=== PATIENT | male | born 1960 | race African-American/Black ===

== ENCOUNTER 2021-02-05 13:11 | Inpatient (IN) | payer OTHER ==
[2021-02-05] MEDS ORDERED: ALBUTEROL SO4 HFA INHALER IH ONE ×2 (14:50→16:04)
[2021-02-05] MEDS ORDERED: SODIUM CHLORIDE 250 ML IV PRN (15:26)
[2021-02-05 16:20] LABS: BASO % 0.8 % (0-2.0); EOS % 8.4 % (0-4.5); HEMATOCRIT 19.6 % (35.4-49); LYMPH % 15.7 % (8-40); MCH 23.6 pg (25.7-33.7); MCHC 32.5 g/dl (32.0-35.9); MEAN CELL VOLUME 72.7 fl (80-96); MONO % 4.9 % (3.8-10.2); NEUT % 70.2 % (42.8-82.8); PLATELET COUNT 241 10^3/uL (134-434); RDW 18.2 % (11.9-15.9); WHITE BLOOD COUNT 5.8 K/mm3 (4.0-10.0)
[2021-02-05 16:25] LABS: HEMOGLOBIN 6.4 GM/dL (11.7-16.9)
[2021-02-05 16:42] LABS: CHLORIDE 100 mmol/L (98-107); SODIUM 133 mmol/L (136-145)
[2021-02-05 16:45] LABS: ALBUMIN 2.9 g/dl (3.4-5.0); BLOOD UREA NITROGEN 81.6 mg/dL (7-18); CO2 20 mmol/L (21-32); GLUCOSE,RANDOM 92 mg/dL (74-106); MAGNESIUM 2.3 mg/dL (1.8-2.4)
[2021-02-05 16:47] LABS: SGPT/ALT 15 U/L (13-61)
[2021-02-05 16:48] LABS: PHOSPHOROUS 5.1 mg/dL (2.5-4.9); SGOT/AST 12 U/L (15-37)
[2021-02-05 16:49] LABS: BILIRUBIN,TOTAL 0.5 mg/dL (0.2-1); TOT PROT 8.2 g/dl (6.4-8.2)
[2021-02-05 16:50] LABS: ALK PHOS 122 U/L (45-117)
[2021-02-05 16:54] LABS: ANION GAP 13 MMOL/L (8-16); CREATININE 18.4 mg/dL (0.55-1.3)
[2021-02-05] MEDS ORDERED: CALCIUM GLUCONATE 10% - 1,000 MG/10 ML VIAL IVPB ONE (16:59)
[2021-02-05] MEDS ORDERED: EPOETIN ALFA-EPBX 10,000 UNIT/ML VIAL IVPUSH ONE (19:30)
[2021-02-05] MEDS: HEPARIN NA (PORCINE) 5,000 UNITS/ML 1ML VIAL SQ SCH (22:45)
[2021-02-06 00:18] VITALS: BMI 29.5
[2021-02-06] MEDS: HEPARIN NA (PORCINE) 5,000 UNITS/ML 1ML VIAL SQ SCH ×2 (06:30→13:28)
[2021-02-06] MEDS: INSULIN SLIDING SCALE (NOVOLOG) 1 VIAL SQ SCH ×4 (06:32→22:33)
[2021-02-06 10:50] LABS: BASO % 0.9 % (0-2.0); EOS % 5.7 % (0-4.5); HEMATOCRIT 22.5 % (35.4-49); HEMOGLOBIN 7.5 GM/dL (11.7-16.9); LYMPH % 8.3 % (8-40); MCH 24.3 pg (25.7-33.7); MCHC 33.2 g/dl (32.0-35.9); MEAN CELL VOLUME 73.2 fl (80-96); MEAN PLT VOLUME 7.8 fl (7.5-11.1); MONO % 4.6 % (3.8-10.2); NEUT % 80.5 % (42.8-82.8); PLATELET COUNT 276 10^3/uL (134-434); RBC 3.07 M/mm3 (4.00-5.60); RDW 18.6 % (11.9-15.9); WHITE BLOOD COUNT 8.3 K/mm3 (4.0-10.0)
[2021-02-06] MEDS ORDERED: SODIUM CHLORIDE 250 ML IV PRN (11:03)
[2021-02-06 11:17] LABS: CHLORIDE 101 mmol/L (98-107); SODIUM 137 mmol/L (136-145)
[2021-02-06 11:21] LABS: ALBUMIN 2.8 g/dl (3.4-5.0); ANION GAP 11 MMOL/L (8-16); CO2 25 mmol/L (21-32); GLUCOSE,RANDOM 103 mg/dL (74-106)
[2021-02-06 11:22] LABS: MAGNESIUM 1.9 mg/dL (1.8-2.4)
[2021-02-06 11:24] LABS: PHOSPHOROUS 4.6 mg/dL (2.5-4.9); SGPT/ALT 12 U/L (13-61)
[2021-02-06] MEDS: CALCIUM ACETATE 667 MG CAPSULE (FP) PO SCH ×2 (11:24→17:49)
[2021-02-06 11:25] LABS: LDH 256 U/L (87-246); SGOT/AST 10 U/L (15-37)
[2021-02-06 11:26] LABS: TOT PROT 8.2 g/dl (6.4-8.2)
[2021-02-06 11:27] LABS: ALK PHOS 115 U/L (45-117)
[2021-02-06 11:36] LABS: BLOOD UREA NITROGEN 47.7 mg/dL (7-18); CALCIUM 6.3 mg/dL (8.5-10.1); CREATININE 12.9 mg/dL (0.55-1.3)
[2021-02-06] MEDS ORDERED: EPOETIN ALFA-EPBX 10,000 UNIT/ML VIAL IVPUSH ONE (12:15)
[2021-02-06] MEDS ORDERED: PARICALCITOL 5 MCG/ML VIAL IVPUSH ONE (12:34)
[2021-02-06] MEDS: CARVEDILOL 6.25 MG TABLET (FP) PO SCH ×2 (13:26→22:33)
[2021-02-06] MEDS: NIFEdipine E.R 60 MG TABLET PO SCH (13:26)
[2021-02-06] MEDS: CALCIUM 500MG/VIT-D 200 UNITS COMBO TABLET (FP) PO SCH (18:49)
[2021-02-06] MEDS: APIXABAN 2.5 MG TABLET PO SCH (22:33)
[2021-02-07 02:48] LABS: EPI CELLS 7 /uL (0-25.1); HYALINE CASTS 1 /uL (0-3.1); PH,URINE >= 9.0 (5.0-8.0); URINE APPEARANCE CLEAR; URINE BACTERIA 8 /uL (0-1359); URINE BILIRUBIN NEGATIVE (NEGATIVE); URINE COLOR YELLOW; URINE GLUCOSE (UA) NEGATIVE (NEGATIVE); URINE KETONE NEGATIVE (NEGATIVE); URINE LEUK ESTERASE NEGATIVE (NEGATIVE); URINE NITRITE NEGATIVE (NEGATIVE); URINE PROTEIN 4+ (NEGATIVE); URINE RBC 8 /uL (0-23.9); URINE WBC 30 /uL (0-25.8)
[2021-02-07] MEDS: INSULIN SLIDING SCALE (NOVOLOG) 1 VIAL SQ SCH ×4 (06:20→21:28)
[2021-02-07 08:15] LABS: BASO % 0.9 % (0-2.0); EOS % 5.4 % (0-4.5); HEMATOCRIT 21.3 % (35.4-49); HEMOGLOBIN 7.1 GM/dL (11.7-16.9); LYMPH % 13.1 % (8-40); MCH 24.6 pg (25.7-33.7); MCHC 33.3 g/dl (32.0-35.9); MEAN CELL VOLUME 73.8 fl (80-96); MEAN PLT VOLUME 7.7 fl (7.5-11.1); MONO % 4.7 % (3.8-10.2); NEUT % 75.9 % (42.8-82.8); PLATELET COUNT 285 10^3/uL (134-434); RBC 2.88 M/mm3 (4.00-5.60); RDW 18.8 % (11.9-15.9); WHITE BLOOD COUNT 6.7 K/mm3 (4.0-10.0)
[2021-02-07 09:15] LABS: ALBUMIN 2.5 g/dl (3.4-5.0); ALK PHOS 98 U/L (45-117); ANION GAP 8 MMOL/L (8-16); BILIRUBIN,TOTAL 0.7 mg/dL (0.2-1); BLOOD UREA NITROGEN 28.4 mg/dL (7-18); CALCIUM 6.4 mg/dL (8.5-10.1); CHLORIDE 99 mmol/L (98-107); CO2 26 mmol/L (21-32); CREATININE 8.6 mg/dL (0.55-1.3); GLUCOSE,RANDOM 95 mg/dL (74-106); IRON SERUM 14 ug/dL (50-175); MAGNESIUM 1.7 mg/dL (1.8-2.4); PHOSPHOROUS 2.7 mg/dL (2.5-4.9); SGOT/AST 10 U/L (15-37); SGPT/ALT 10 U/L (13-61); SODIUM 133 mmol/L (136-145); TOT PROT 7.6 g/dl (6.4-8.2); TOTAL IRON BINDING CAPACITY 255 ug/dL (250-450)
[2021-02-07] MEDS ORDERED: PT OWN MED DRAWER 7, Y5N ONE (09:39)
[2021-02-07] MEDS: CARVEDILOL 6.25 MG TABLET (FP) PO SCH ×2 (10:05→21:28)
[2021-02-07] MEDS: APIXABAN 2.5 MG TABLET PO SCH ×2 (10:05→21:28)
[2021-02-07] MEDS: CALCIUM 500MG/VIT-D 200 UNITS COMBO TABLET (FP) PO SCH (10:06)
[2021-02-07] MEDS: NIFEdipine E.R 60 MG TABLET PO SCH (10:06)
[2021-02-07] MEDS ORDERED: SODIUM CHLORIDE 250 ML IV PRN (12:56)
[2021-02-08 00:15] VITALS: TEMP 98.2
[2021-02-08] MEDS: INSULIN SLIDING SCALE (NOVOLOG) 1 VIAL SQ SCH ×2 (06:43→12:22)
[2021-02-08] MEDS ORDERED: NIFEdipine E.R. 30 MG TABLET PO SCH (10:00)
[2021-02-08] MEDS ORDERED: NIFEdipine E.R 60 MG TABLET PO SCH (10:00)
[2021-02-08] MEDS: CALCIUM 500MG/VIT-D 200 UNITS COMBO TABLET (FP) PO SCH (10:21)
[2021-02-08] MEDS: APIXABAN 2.5 MG TABLET PO SCH (10:22)
[2021-02-08] MEDS: CARVEDILOL 6.25 MG TABLET (FP) PO SCH (10:22)
[2021-02-08 10:28] VITALS: BP 138/76; PULSE 92
[2021-02-08] MEDS ORDERED: EPOETIN ALFA-EPBX 10,000 UNIT/ML VIAL SQ ONE (12:56)
== END 2021-02-08 13:59 | disposition home or self-care (01) | DRG 640 ==
LOC: JER 13:11 → JERBED 14:42 → J5S 21:33
PROVIDERS: ADMIT Internal Medicine; ATTEND Internal Medicine
PROC: 5A1D70Z Performance of Urinary Filtration, Intermittent, Less than 6 Hours Per Day (ICD-10-PCS; 2021-02-05)
PROC: 0HBRXZZ Excision of Toe Nail, External Approach (ICD-10-PCS; principal; 2021-02-06)
PROC: 0HBRXZZ Excision of Toe Nail, External Approach (ICD-10-PCS; 2021-02-06)
PROC: 0HBRXZZ Excision of Toe Nail, External Approach (ICD-10-PCS; 2021-02-06)
PROC: 0HBRXZZ Excision of Toe Nail, External Approach (ICD-10-PCS; 2021-02-06)
PROC: 0HBRXZZ Excision of Toe Nail, External Approach (ICD-10-PCS; 2021-02-06)
PROC: 0HBRXZZ Excision of Toe Nail, External Approach (ICD-10-PCS; 2021-02-06)
PROC: 0HBRXZZ Excision of Toe Nail, External Approach (ICD-10-PCS; 2021-02-06)
PROC: 0HBRXZZ Excision of Toe Nail, External Approach (ICD-10-PCS; 2021-02-06)
PROC: 0HBRXZZ Excision of Toe Nail, External Approach (ICD-10-PCS; 2021-02-06)
PROC: 0HBRXZZ Excision of Toe Nail, External Approach (ICD-10-PCS; 2021-02-06)
PROC: 5A1D70Z Performance of Urinary Filtration, Intermittent, Less than 6 Hours Per Day (ICD-10-PCS; 2021-02-06)
DX: E87.70 Fluid overload, unspecified (principal); N18.6 End stage renal disease; I12.0 Hypertensive chronic kidney disease with stage 5 chronic kidney disease or end stage renal disease; L97.528 Non-pressure chronic ulcer of other part of left foot with other specified severity; E11.22 Type 2 diabetes mellitus with diabetic chronic kidney disease; J45.909 Unspecified asthma, uncomplicated; D64.9 Anemia, unspecified; E87.5 Hyperkalemia; E11.40 Type 2 diabetes mellitus with diabetic neuropathy, unspecified; E83.51 Hypocalcemia; Z86.73 Personal history of transient ischemic attack (TIA), and cerebral infarction without residual deficits; B35.1 Tinea unguium; B35.3 Tinea pedis; Z99.2 Dependence on renal dialysis
CPT/HCPCS: 36415; 36430; 71045-TC-FY; 80053; 81003; 82550; 82553; 82728; 82962; 83540; 83550; 83615; 83735; 84100; 84132; 84484; 85025; 85045; 86803; 86850; 86900; 86901; 86922; 87040; 87340; 87804; 93005; 93010; 97116-GP; 97162-GP; 99285-25; C9803; J1644; P9058; Q5106; U0003; U0005

== ENCOUNTER 2021-02-28 17:56 | Inpatient (IN) | payer OTHER ==
[2021-02-28 21:42] LABS: BASO % 2.2 % (0-2.0); EOS % 6.9 % (0-4.5); HEMATOCRIT 15.4 % (35.4-49); LYMPH % 18.5 % (8-40); MCH 25.3 pg (25.7-33.7); MCHC 32.5 g/dl (32.0-35.9); MEAN CELL VOLUME 77.9 fl (80-96); MONO % 7.8 % (3.8-10.2); NEUT % 64.6 % (42.8-82.8); PLATELET COUNT 319 10^3/uL (134-434); RBC 1.97 M/mm3 (4.00-5.60); RDW 21.7 % (11.9-15.9); WHITE BLOOD COUNT 6.5 K/mm3 (4.0-10.0)
[2021-02-28 22:01] LABS: CHLORIDE 102 mmol/L (98-107); SODIUM 134 mmol/L (136-145)
[2021-02-28 22:03] LABS: ALBUMIN 2.8 g/dl (3.4-5.0); BLOOD UREA NITROGEN 98.1 mg/dL (7-18); CO2 16 mmol/L (21-32); GLUCOSE,RANDOM 66 mg/dL (74-106); MAGNESIUM 2.1 mg/dL (1.8-2.4)
[2021-02-28 22:06] LABS: SGOT/AST 317 U/L (15-37); SGPT/ALT 192 U/L (13-61)
[2021-02-28 22:07] LABS: PHOSPHOROUS 7.5 mg/dL (2.5-4.9)
[2021-02-28 22:08] LABS: BILIRUBIN,TOTAL 0.5 mg/dL (0.2-1); TOT PROT 8.4 g/dl (6.4-8.2)
[2021-02-28 22:09] LABS: ALK PHOS 115 U/L (45-117)
[2021-02-28 22:27] LABS: ANION GAP 16 MMOL/L (8-16); CALCIUM 5.9 mg/dL (8.5-10.1)
[2021-02-28] MEDS ORDERED: DEXTROSE 50%-WATER - 25 GM/50 ML VIAL IVPUSH ONE ×3 (22:41→23:15)
[2021-02-28] MEDS ORDERED: INSULIN REGULAR HUMAN 100 UNITS/ML *VIAL IVPUSH ONE (22:42)
[2021-02-28] MEDS ORDERED: SODIUM BICARBONATE 8.4% 50 MEQ/50 ML DISP.SYRIN IVPUSH ONE (22:43)
[2021-02-28 22:44] LABS: ANISOCYTOSIS 2+; MACROCYTOSIS 2+; PLATELET ESTIMATE NORMAL; TARGET CELLS 1+
[2021-02-28] MEDS ORDERED: CALCIUM GLUC IN NACL, ISO-OSM 1 GM/50 ML BAG IVPB ONE (22:44)
[2021-02-28] MEDS ORDERED: DEXTROSE 50%-WATER 25 GM/50 ML DISP.SYRIN ONE (23:02)
[2021-02-28] MEDS ORDERED: CALCIUM GLUCONATE 10% - 1,000 MG/10 ML VIAL ONE (23:02)
[2021-02-28] MEDS ORDERED: SODIUM BICARBONATE 8.4% - 50 ML ONE (23:02)
[2021-02-28] MEDS ORDERED: SODIUM CHLORIDE 250 ML IV PRN (23:12)
[2021-02-28] MEDS ORDERED: FUROSEMIDE 40 MG TABLET (FP) PO ONE (23:42)
[2021-02-28] MEDS ORDERED: ALBUTEROL SO4 0.083% IH SOL 2.5 MG/3 ML VIAL.NEB. NEB ONE (23:43)
[2021-03-01] MEDS ORDERED: ALBUTEROL SO4 0.083% IH SOL 2.5 MG/3 ML VIAL.NEB. NEB ONE (00:12)
[2021-03-01] MEDS ORDERED: FUROSEMIDE 40 MG TABLET (FP) ONE (00:12)
[2021-03-01] MEDS ORDERED: ALBUTEROL SO4 HFA INHALER IH PRN ×2 (02:02→03:59)
[2021-03-01] MEDS: ALBUTEROL SO4 0.083% IH SOL 2.5 MG/3 ML VIAL.NEB. NEB SCH ×5 (04:13→20:15)
[2021-03-01 04:14] LABS: CHLORIDE 103 mmol/L (98-107); SODIUM 135 mmol/L (136-145)
[2021-03-01 04:16] LABS: BLOOD UREA NITROGEN 98.9 mg/dL (7-18); CO2 17 mmol/L (21-32); GLUCOSE,RANDOM 69 mg/dL (74-106)
[2021-03-01 04:31] LABS: ANION GAP 15 MMOL/L (8-16); CREATININE 20.9 mg/dL (0.55-1.3)
[2021-03-01] MEDS ORDERED: DEXTROSE 50%-WATER - 25 GM/50 ML VIAL IVPUSH ONE (04:33)
[2021-03-01] MEDS ORDERED: INSULIN REGULAR HUMAN 100 UNITS/ML *VIAL IVPUSH ONE (04:33)
[2021-03-01] MEDS ORDERED: CALCIUM GLUCONATE 10% - 1,000 MG/10 ML VIAL IVPUSH ONE (04:34)
[2021-03-01] MEDS ORDERED: DEXTROSE 50%-WATER 25 GM/50 ML DISP.SYRIN ONE (05:42)
[2021-03-01] MEDS: SEVELAMER CARBONATE 800 MG TAB (FP) PO SCH ×3 (06:05→21:38)
[2021-03-01] MEDS: ALBUTEROL SO4 HFA INHALER IH SCH ×4 (06:05→17:44)
[2021-03-01] MEDS ORDERED: SODIUM ZIRCONIUM CYCLOSILICATE (LOKELMA) 10 GM PACKET PO ONE (06:15)
[2021-03-01] MEDS: INSULIN SLIDING SCALE (NOVOLOG) 1 VIAL SQ SCH ×4 (06:50→21:38)
[2021-03-01 07:52] LABS: CHLORIDE 102 mmol/L (98-107); SODIUM 133 mmol/L (136-145)
[2021-03-01 07:56] LABS: ALBUMIN 2.7 g/dl (3.4-5.0); BLOOD UREA NITROGEN 96.1 mg/dL (7-18); CO2 18 mmol/L (21-32); GLUCOSE,RANDOM 67 mg/dL (74-106)
[2021-03-01 07:57] LABS: MAGNESIUM 2.1 mg/dL (1.8-2.4)
[2021-03-01 07:59] LABS: IRON SERUM 55 ug/dL (50-175); PHOSPHOROUS 7.4 mg/dL (2.5-4.9); SGOT/AST 371 U/L (15-37); SGPT/ALT 219 U/L (13-61); TOTAL IRON BINDING CAPACITY 253 ug/dL (250-450)
[2021-03-01 08:00] LABS: BILIRUBIN,TOTAL 0.6 mg/dL (0.2-1); TOT PROT 8.1 g/dl (6.4-8.2)
[2021-03-01 08:01] LABS: ALK PHOS 113 U/L (45-117)
[2021-03-01 08:22] LABS: ANION GAP 13 MMOL/L (8-16); CALCIUM 6.1 mg/dL (8.5-10.1); CREATININE 20.9 mg/dL (0.55-1.3)
[2021-03-01] MEDS ORDERED: EPOETIN ALFA-EPBX 10,000 UNIT/ML VIAL SQ ONE (08:30)
[2021-03-01 08:42] LABS: BASO % 2.4 % (0-2.0); EOS % 7.1 % (0-4.5); LYMPH % 15.7 % (8-40); MCHC 33.4 g/dl (32.0-35.9); MEAN CELL VOLUME 77.9 fl (80-96); MONO % 7.3 % (3.8-10.2); NEUT % 67.5 % (42.8-82.8); PLATELET COUNT 242 10^3/uL (134-434); RBC 2.56 M/mm3 (4.00-5.60); RDW 21.5 % (11.9-15.9); WHITE BLOOD COUNT 5.4 K/mm3 (4.0-10.0)
[2021-03-01 08:48] LABS: HEMOGLOBIN 6.7 GM/dL (11.7-16.9)
[2021-03-01 09:01] LABS: MAGNESIUM 2.5 mg/dL (1.8-2.4)
[2021-03-01 09:04] LABS: PHOSPHOROUS 6.5 mg/dL (2.5-4.9)
[2021-03-01] MEDS ORDERED: SODIUM ZIRCONIUM CYCLOSILICATE (LOKELMA) 5 GM PACKET PO SCH (10:00)
[2021-03-01 11:33] LABS: CHLORIDE 103 mmol/L (98-107); SODIUM 136 mmol/L (136-145)
[2021-03-01 11:39] LABS: GLUCOSE,RANDOM 80 mg/dL (74-106)
[2021-03-01 11:40] LABS: ANION GAP 16 MMOL/L (8-16); BLOOD UREA NITROGEN 100.4 mg/dL (7-18); CO2 17 mmol/L (21-32)
[2021-03-01 11:55] LABS: CALCIUM 6.1 mg/dL (8.5-10.1); CREATININE 20.6 mg/dL (0.55-1.3)
[2021-03-01] MEDS ORDERED: AMMONIUM LACTATE 12% LOTION 225 GM BOTTLE TP PRN ×2 (12:04→12:06)
[2021-03-01] MEDS: NIFEdipine E.R. 30 MG TABLET PO SCH (12:15)
[2021-03-01] MEDS: CARVEDILOL 6.25 MG TABLET (FP) PO SCH ×2 (12:15→21:38)
[2021-03-01 15:32] LABS: CHLORIDE 101 mmol/L (98-107); SODIUM 137 mmol/L (136-145)
[2021-03-01 15:41] LABS: ALBUMIN 2.7 g/dl (3.4-5.0); ANION GAP 11 MMOL/L (8-16); CO2 25 mmol/L (21-32); GLUCOSE,RANDOM 94 mg/dL (74-106)
[2021-03-01 15:44] LABS: SGOT/AST 317 U/L (15-37); SGPT/ALT 212 U/L (13-61)
[2021-03-01 15:45] LABS: BILIRUBIN,TOTAL 1.3 mg/dL (0.2-1)
[2021-03-01 15:46] LABS: TOT PROT 7.7 g/dl (6.4-8.2)
[2021-03-01 15:47] LABS: ALK PHOS 107 U/L (45-117)
[2021-03-01 15:48] LABS: BLOOD UREA NITROGEN 38.8 mg/dL (7-18); CALCIUM 7.2 mg/dL (8.5-10.1); CREATININE 8.8 mg/dL (0.55-1.3)
[2021-03-01] MEDS: MUPIROCIN 2% TOPICAL OINTMENT FOR DECOLONIZATION NS SCH ×2 (17:15→21:37)
[2021-03-01 17:18] LABS: EOS % 5.1 % (0-4.5); HEMATOCRIT 25.8 % (35.4-49); HEMOGLOBIN 8.6 GM/dL (11.7-16.9); LYMPH % 6.8 % (8-40); MCH 26.6 pg (25.7-33.7); MCHC 33.4 g/dl (32.0-35.9); MEAN CELL VOLUME 79.7 fl (80-96); MONO % 8.6 % (3.8-10.2); NEUT % 78.5 % (42.8-82.8); PLATELET COUNT 250 10^3/uL (134-434); RBC 3.24 M/mm3 (4.00-5.60); RDW 20.4 % (11.9-15.9); WHITE BLOOD COUNT 7.8 K/mm3 (4.0-10.0)
[2021-03-01] MEDS ORDERED: CHLORHEXIDINE GLUCONATE 4% CLEANSER FOR DECOLONIZATION TP SCH (22:00)
[2021-03-02] MEDS: ALBUTEROL SO4 0.083% IH SOL 2.5 MG/3 ML VIAL.NEB. NEB SCH ×6 (00:18→20:22)
[2021-03-02 01:52] LABS: ANION GAP 8 MMOL/L (8-16); BLOOD UREA NITROGEN 48.8 mg/dL (7-18); CALCIUM 5.9 mg/dL (8.5-10.1); CHLORIDE 102 mmol/L (98-107); CO2 27 mmol/L (21-32); CREATININE 12.9 mg/dL (0.55-1.3); GLUCOSE,RANDOM 108 mg/dL (74-106); SODIUM 137 mmol/L (136-145)
[2021-03-02] MEDS: INSULIN SLIDING SCALE (NOVOLOG) 1 VIAL SQ SCH ×4 (06:28→21:14)
[2021-03-02] MEDS: SEVELAMER CARBONATE 800 MG TAB (FP) PO SCH ×2 (06:33→14:27)
[2021-03-02] MEDS ORDERED: SODIUM CHLORIDE 250 ML IV PRN (07:00)
[2021-03-02] MEDS ORDERED: EPOETIN ALFA-EPBX 20,000 UNIT/ML VIAL SQ ONE (08:00)
[2021-03-02 08:26] LABS: HEMATOCRIT 23.4 % (35.4-49); HEMOGLOBIN 7.9 GM/dL (11.7-16.9); MCH 26.8 pg (25.7-33.7); MEAN CELL VOLUME 78.9 fl (80-96); MEAN PLT VOLUME 7.6 fl (7.5-11.1); PLATELET COUNT 236 10^3/uL (134-434); RBC 2.96 M/mm3 (4.00-5.60); RDW 20.9 % (11.9-15.9); WHITE BLOOD COUNT 6.5 K/mm3 (4.0-10.0)
[2021-03-02] MEDS: ALBUTEROL SO4 HFA INHALER IH SCH ×7 (08:45→21:13)
[2021-03-02 08:49] LABS: CHLORIDE 103 mmol/L (98-107); SODIUM 137 mmol/L (136-145)
[2021-03-02 08:52] LABS: ALBUMIN 2.2 g/dl (3.4-5.0); ANION GAP 9 MMOL/L (8-16); BLOOD UREA NITROGEN 50.2 mg/dL (7-18); CO2 26 mmol/L (21-32); GLUCOSE,RANDOM 107 mg/dL (74-106)
[2021-03-02 08:55] LABS: SGOT/AST 97 U/L (15-37); SGPT/ALT 130 U/L (13-61)
[2021-03-02 08:56] LABS: BILIRUBIN,TOTAL 0.8 mg/dL (0.2-1); TOT PROT 6.8 g/dl (6.4-8.2)
[2021-03-02 08:58] LABS: ALK PHOS 102 U/L (45-117); CALCIUM 5.8 mg/dL (8.5-10.1); CREATININE 12.9 mg/dL (0.55-1.3)
[2021-03-02] MEDS: NIFEdipine E.R. 30 MG TABLET PO SCH (10:25)
[2021-03-02] MEDS: CARVEDILOL 6.25 MG TABLET (FP) PO SCH ×2 (10:25→21:13)
[2021-03-02] MEDS: MUPIROCIN 2% TOPICAL OINTMENT FOR DECOLONIZATION NS SCH (10:55)
[2021-03-02] MEDS ORDERED: guaiFENesin/CODEINE 10 ML UNIT-DOSE CUPS PO STA (14:41)
[2021-03-02] MEDS ORDERED: ALBUTEROL SO4 0.083% IH SOL 2.5 MG/3 ML VIAL.NEB. NEB STA (14:44)
[2021-03-02] MEDS ORDERED: AMMONIUM LACTATE 12% LOTION 225 GM BOTTLE TP PRN (19:05)
[2021-03-02] MEDS ORDERED: CHLORHEXIDINE GLUCONATE 4% CLEANSER FOR DECOLONIZATION TP SCH (22:00)
[2021-03-02] MEDS ORDERED: MUPIROCIN 2% TOPICAL OINTMENT FOR DECOLONIZATION NS SCH (22:00)
[2021-03-03] MEDS: ALBUTEROL SO4 0.083% IH SOL 2.5 MG/3 ML VIAL.NEB. NEB SCH ×4 (00:07→12:46)
[2021-03-03] MEDS: ALBUTEROL SO4 HFA INHALER IH SCH ×4 (01:32→12:37)
[2021-03-03] MEDS: INSULIN SLIDING SCALE (NOVOLOG) 1 VIAL SQ SCH ×4 (06:37→21:01)
[2021-03-03 08:57] LABS: EOS % 7.9 % (0-4.5); HEMATOCRIT 26.1 % (35.4-49); HEMOGLOBIN 8.8 GM/dL (11.7-16.9); LYMPH % 13.7 % (8-40); MCHC 33.7 g/dl (32.0-35.9); MEAN CELL VOLUME 80.1 fl (80-96); MEAN PLT VOLUME 7.6 fl (7.5-11.1); MONO % 12.5 % (3.8-10.2); NEUT % 64.9 % (42.8-82.8); PLATELET COUNT 296 10^3/uL (134-434); RBC 3.26 M/mm3 (4.00-5.60); RDW 20.6 % (11.9-15.9); WHITE BLOOD COUNT 8.2 K/mm3 (4.0-10.0)
[2021-03-03] MEDS: SEVELAMER CARBONATE 800 MG TAB (FP) PO SCH ×3 (09:19→17:13)
[2021-03-03] MEDS: CARVEDILOL 6.25 MG TABLET (FP) PO SCH ×2 (09:20→21:01)
[2021-03-03] MEDS: NIFEdipine E.R. 30 MG TABLET PO SCH (09:20)
[2021-03-03 09:22] LABS: ALBUMIN 2.5 g/dl (3.4-5.0); CO2 25 mmol/L (21-32); GLUCOSE,RANDOM 89 mg/dL (74-106); MAGNESIUM 1.1 mg/dL (1.8-2.4)
[2021-03-03 09:25] LABS: PHOSPHOROUS 3.2 mg/dL (2.5-4.9); SGOT/AST 53 U/L (15-37); SGPT/ALT 98 U/L (13-61)
[2021-03-03 09:26] LABS: BILIRUBIN,TOTAL 0.6 mg/dL (0.2-1)
[2021-03-03 09:27] LABS: TOT PROT 7.5 g/dl (6.4-8.2)
[2021-03-03 09:28] LABS: ALK PHOS 98 U/L (45-117)
[2021-03-03 09:37] LABS: ANION GAP 10 MMOL/L (8-16); BLOOD UREA NITROGEN 28.1 mg/dL (7-18); CALCIUM 6.2 mg/dL (8.5-10.1); CHLORIDE 99 mmol/L (98-107); CREATININE 8.6 mg/dL (0.55-1.3); SODIUM 134 mmol/L (136-145)
[2021-03-03] MEDS ORDERED: ALBUTEROL SO4 HFA INHALER IH PRN (15:50)
[2021-03-04] MEDS: INSULIN SLIDING SCALE (NOVOLOG) 1 VIAL SQ SCH ×4 (07:02→21:09)
[2021-03-04] MEDS: SEVELAMER CARBONATE 800 MG TAB (FP) PO SCH ×3 (07:03→16:57)
[2021-03-04 08:18] LABS: BASO % 1.1 % (0-2.0); EOS % 9.9 % (0-4.5); LYMPH % 13.9 % (8-40); MCH 26.7 pg (25.7-33.7); MCHC 33.5 g/dl (32.0-35.9); MEAN CELL VOLUME 79.7 fl (80-96); MEAN PLT VOLUME 7.2 fl (7.5-11.1); MONO % 13.8 % (3.8-10.2); NEUT % 61.3 % (42.8-82.8); PLATELET COUNT 277 10^3/uL (134-434); WHITE BLOOD COUNT 6.7 K/mm3 (4.0-10.0)
[2021-03-04 08:43] LABS: CHLORIDE 97 mmol/L (98-107); SODIUM 131 mmol/L (136-145)
[2021-03-04 08:53] LABS: ALBUMIN 2.4 g/dl (3.4-5.0); ANION GAP 9 MMOL/L (8-16); CO2 26 mmol/L (21-32); GLUCOSE,RANDOM 81 mg/dL (74-106); MAGNESIUM 1.5 mg/dL (1.8-2.4)
[2021-03-04 08:55] LABS: BILIRUBIN,TOTAL 0.4 mg/dL (0.2-1); TOT PROT 7.1 g/dl (6.4-8.2)
[2021-03-04 08:56] LABS: SGOT/AST 38 U/L (15-37); SGPT/ALT 75 U/L (13-61)
[2021-03-04 08:57] LABS: ALK PHOS 96 U/L (45-117)
[2021-03-04 08:59] LABS: CALCIUM 6.2 mg/dL (8.5-10.1); CREATININE 9.6 mg/dL (0.55-1.3)
[2021-03-04] MEDS: NIFEdipine E.R. 30 MG TABLET PO SCH (09:02)
[2021-03-04] MEDS: CARVEDILOL 6.25 MG TABLET (FP) PO SCH ×2 (09:02→21:07)
[2021-03-04] MEDS: VITAMIN B COMP W-C 1 EA TABLET (NEPHRO-VITE) PO SCH (09:02)
[2021-03-04 11:11] LABS: INR 1.26 (0.83-1.09); PROTHROMBIN TIME (PATIENT) 14.2 SEC (9.7-13.0)
[2021-03-04] MEDS ORDERED: MAGNESIUM OXIDE 400 MG TABLET (FP) PO ONE (13:30)
[2021-03-04] MEDS: PANTOPRAZOLE 20 MG TABLET PO SCH (14:01)
[2021-03-04] MEDS ORDERED: BISACODYL 5 MG TABLET.DR (FP) PO ONE (16:00)
[2021-03-04] MEDS ORDERED: PEG 3350/NA SULF BICARB CL/KCL 4000 ML SOLN.RECON PO ONE (17:00)
[2021-03-05] MEDS: INSULIN SLIDING SCALE (NOVOLOG) 1 VIAL SQ SCH ×4 (07:03→21:30)
[2021-03-05 08:23] LABS: BASO % 0.9 % (0-2.0); EOS % 9.8 % (0-4.5); HEMATOCRIT 24.5 % (35.4-49); HEMOGLOBIN 8.1 GM/dL (11.7-16.9); LYMPH % 13.1 % (8-40); MCH 26.6 pg (25.7-33.7); MCHC 33.3 g/dl (32.0-35.9); MEAN PLT VOLUME 7.8 fl (7.5-11.1); NEUT % 64.2 % (42.8-82.8); PLATELET COUNT 274 10^3/uL (134-434); RBC 3.06 M/mm3 (4.00-5.60); RDW 21.2 % (11.9-15.9); WHITE BLOOD COUNT 5.8 K/mm3 (4.0-10.0)
[2021-03-05 08:35] LABS: CHLORIDE 94 mmol/L (98-107); SODIUM 130 mmol/L (136-145)
[2021-03-05 08:38] LABS: BLOOD UREA NITROGEN 41.8 mg/dL (7-18)
[2021-03-05 08:39] LABS: ALBUMIN 2.8 g/dl (3.4-5.0); ANION GAP 8 MMOL/L (8-16); CO2 28 mmol/L (21-32); GLUCOSE,RANDOM 84 mg/dL (74-106); MAGNESIUM 1.9 mg/dL (1.8-2.4)
[2021-03-05 08:42] LABS: SGOT/AST 29 U/L (15-37); SGPT/ALT 65 U/L (13-61)
[2021-03-05 08:44] LABS: BILIRUBIN,TOTAL 0.5 mg/dL (0.2-1); TOT PROT 7.8 g/dl (6.4-8.2)
[2021-03-05 08:45] LABS: ALK PHOS 95 U/L (45-117)
[2021-03-05 08:49] LABS: CALCIUM 6.4 mg/dL (8.5-10.1); CREATININE 10.5 mg/dL (0.55-1.3)
[2021-03-05] MEDS: SEVELAMER CARBONATE 800 MG TAB (FP) PO SCH ×3 (09:20→17:45)
[2021-03-05] MEDS: NIFEdipine E.R. 30 MG TABLET PO SCH (09:20)
[2021-03-05] MEDS: PANTOPRAZOLE 20 MG TABLET PO SCH (09:20)
[2021-03-05] MEDS: CARVEDILOL 6.25 MG TABLET (FP) PO SCH ×2 (09:20→21:27)
[2021-03-05] MEDS: VITAMIN B COMP W-C 1 EA TABLET (NEPHRO-VITE) PO SCH (09:20)
[2021-03-05] MEDS ORDERED: PEG 3350/NA SULF BICARB CL/KCL 4000 ML SOLN.RECON PO ONE (10:00)
[2021-03-05] MEDS ORDERED: EPOETIN ALFA-EPBX 20,000 UNIT/ML VIAL SQ ONE (10:15)
[2021-03-05] MEDS ORDERED: SODIUM CHLORIDE 250 ML IV PRN (10:20)
[2021-03-05] MEDS ORDERED: IRON SUCROSE INJECTION 200 MG in SODIUM CHLORIDE 90 ML IVPB ONE (11:00)
[2021-03-05] MEDS: MINERAL OIL/PET HY-PHL TOPICAL OINTMENT 454 GM JAR TP SCH (14:31)
[2021-03-05] MEDS ORDERED: BISACODYL 5 MG TABLET.DR (FP) PO ONE (20:00)
[2021-03-06] MEDS: INSULIN SLIDING SCALE (NOVOLOG) 1 VIAL SQ SCH ×4 (06:30→22:49)
[2021-03-06] MEDS: SEVELAMER CARBONATE 800 MG TAB (FP) PO SCH ×3 (08:43→16:55)
[2021-03-06 09:07] LABS: EOS % 5.6 % (0-4.5); HEMATOCRIT 24.8 % (35.4-49); HEMOGLOBIN 8.3 GM/dL (11.7-16.9); LYMPH % 13.1 % (8-40); MCH 27.1 pg (25.7-33.7); MCHC 33.6 g/dl (32.0-35.9); MEAN CELL VOLUME 80.8 fl (80-96); MEAN PLT VOLUME 7.6 fl (7.5-11.1); MONO % 14.9 % (3.8-10.2); NEUT % 65.4 % (42.8-82.8); PLATELET COUNT 224 10^3/uL (134-434); RBC 3.07 M/mm3 (4.00-5.60); RDW 21.3 % (11.9-15.9); RETICULOCYTES 3.44 % (0.5-1.5); WHITE BLOOD COUNT 5.7 K/mm3 (4.0-10.0)
[2021-03-06 09:28] LABS: ALBUMIN 2.6 g/dl (3.4-5.0); BLOOD UREA NITROGEN 24.1 mg/dL (7-18); CALCIUM 7.1 mg/dL (8.5-10.1); MAGNESIUM 1.9 mg/dL (1.8-2.4)
[2021-03-06 09:31] LABS: CREATININE 7.2 mg/dL (0.55-1.3)
[2021-03-06 09:33] LABS: BILIRUBIN,TOTAL 0.6 mg/dL (0.2-1); TOT PROT 7.6 g/dl (6.4-8.2)
[2021-03-06] MEDS: VITAMIN B COMP W-C 1 EA TABLET (NEPHRO-VITE) PO SCH (10:23)
[2021-03-06] MEDS: CARVEDILOL 6.25 MG TABLET (FP) PO SCH ×2 (10:23→21:53)
[2021-03-06] MEDS: NIFEdipine E.R. 30 MG TABLET PO SCH (10:23)
[2021-03-06] MEDS: PANTOPRAZOLE 20 MG TABLET PO SCH (10:23)
[2021-03-06] MEDS: MINERAL OIL/PET HY-PHL TOPICAL OINTMENT 454 GM JAR TP SCH (10:24)
[2021-03-06] MEDS: BUDESONIDE/FORMETEROL FUMARATE 80/4.5 mcg INHALER IH SCH ×2 (10:25→21:52)
[2021-03-06] MEDS ORDERED: PT OWN MED DRAWER 7, Y5N ONE (10:25)
[2021-03-07] MEDS ORDERED: ALBUTEROL SO4 2.5/IPRATROPIUM 0.5 INH SOL 3 ML VIAL.NEB. NEB ONE (01:03)
[2021-03-07] MEDS ORDERED: MAGNESIUM SULF 50% (8.12 MEQ/2 ML-1 GM VIAL) IVPB ONE (01:09)
[2021-03-07] MEDS ORDERED: methylPREDNISolone NA SUCC 125 MG/2 ML VIAL IVPUSH ONE (01:09)
[2021-03-07 01:46] LABS: ARTERIAL BLD GAS O2 SATURATION 93.1 % (95-98); ARTERIAL BLOOD GAS BASE EXCESS -0.7 mmol/L (-2-2); ARTERIAL BLOOD GAS PO2 72.6 mmHg (80-100); ARTERIAL BLOOD GAS pH 7.313 (7.350-7.450)
[2021-03-07 01:49] LABS: ALLENS TEST POSITIVE; VENT RATE 18
[2021-03-07] MEDS ORDERED: guaiFENesin/D-M SUGAR-FREE/ACLHOL-FREE 118 ML BOTTLE PO ONE (01:57)
[2021-03-07] MEDS: ALBUTEROL SO4 2.5/IPRATROPIUM 0.5 INH SOL 3 ML VIAL.NEB. NEB SCH ×5 (04:12→20:55)
[2021-03-07] MEDS ORDERED: ALBUTEROL SO4 2.5/IPRATROPIUM 0.5 INH SOL 3 ML VIAL.NEB. NEB SCH (06:00)
[2021-03-07] MEDS: INSULIN SLIDING SCALE (NOVOLOG) 1 VIAL SQ SCH ×4 (06:45→22:56)
[2021-03-07] MEDS: SEVELAMER CARBONATE 800 MG TAB (FP) PO SCH ×3 (08:29→17:31)
[2021-03-07] MEDS ORDERED: PT OWN MED DRAWER 7, Y5N ONE (09:41)
[2021-03-07] MEDS: NIFEdipine E.R. 30 MG TABLET PO SCH (09:48)
[2021-03-07] MEDS: BUDESONIDE/FORMETEROL FUMARATE 80/4.5 mcg INHALER IH SCH ×2 (09:48→22:58)
[2021-03-07] MEDS: CARVEDILOL 6.25 MG TABLET (FP) PO SCH ×2 (09:48→22:52)
[2021-03-07] MEDS: MINERAL OIL/PET HY-PHL TOPICAL OINTMENT 454 GM JAR TP SCH (09:49)
[2021-03-07] MEDS ORDERED: methylPREDNISolone NA SUCC 40 MG/1 ML VIAL IVPUSH SCH (10:00)
[2021-03-07] MEDS ORDERED: INSULIN (NOVOLOG) ASPART 100 UNITS/ML 10ML VIAL ONE (11:46)
[2021-03-07] MEDS ORDERED: SODIUM CHLORIDE 250 ML IV PRN (14:10)
[2021-03-07] MEDS ORDERED: EPOETIN ALFA-EPBX 20,000 UNIT/ML VIAL SQ ONE (14:15)
[2021-03-07 15:29] LABS: HEMATOCRIT 22.7 % (35.4-49); HEMOGLOBIN 7.5 GM/dL (11.7-16.9); MCH 26.9 pg (25.7-33.7); MCHC 33.1 g/dl (32.0-35.9); MEAN CELL VOLUME 81.2 fl (80-96); MEAN PLT VOLUME 7.9 fl (7.5-11.1); PLATELET COUNT 144 10^3/uL (134-434); RBC 2.79 M/mm3 (4.00-5.60); WHITE BLOOD COUNT 4.6 K/mm3 (4.0-10.0)
[2021-03-07 15:57] LABS: CHLORIDE 95 mmol/L (98-107); SODIUM 133 mmol/L (136-145)
[2021-03-07 15:59] LABS: ALBUMIN 2.7 g/dl (3.4-5.0); ANION GAP 9 MMOL/L (8-16); CO2 29 mmol/L (21-32)
[2021-03-07 16:00] LABS: BLOOD UREA NITROGEN 38.3 mg/dL (7-18); GLUCOSE,RANDOM 153 mg/dL (74-106); MAGNESIUM 2.2 mg/dL (1.8-2.4)
[2021-03-07 16:02] LABS: SGPT/ALT 41 U/L (13-61)
[2021-03-07 16:03] LABS: CALCIUM 6.7 mg/dL (8.5-10.1); CREATININE 8.2 mg/dL (0.55-1.3); SGOT/AST 24 U/L (15-37)
[2021-03-07 16:04] LABS: BILIRUBIN,TOTAL 0.6 mg/dL (0.2-1); TOT PROT 7.9 g/dl (6.4-8.2)
[2021-03-07 16:05] LABS: ALK PHOS 96 U/L (45-117)
[2021-03-07] MEDS: HEPARIN NA (PORCINE) 5,000 UNITS/ML 1ML VIAL SQ SCH ×2 (17:09→22:52)
[2021-03-07] MEDS: VITAMIN B COMP W-C 1 EA TABLET (NEPHRO-VITE) PO SCH (17:09)
[2021-03-07] MEDS: PANTOPRAZOLE 20 MG TABLET PO SCH (17:09)
[2021-03-08] MEDS: guaiFENesin/D-M SUGAR-FREE/ACLHOL-FREE 118 ML BOTTLE PO PRN ×2 (05:38→16:29)
[2021-03-08] MEDS: INSULIN SLIDING SCALE (NOVOLOG) 1 VIAL SQ SCH ×4 (06:03→21:23)
[2021-03-08] MEDS: ALBUTEROL SO4 2.5/IPRATROPIUM 0.5 INH SOL 3 ML VIAL.NEB. NEB SCH ×4 (08:11→20:20)
[2021-03-08] MEDS: MINERAL OIL/PET HY-PHL TOPICAL OINTMENT 454 GM JAR TP SCH (09:08)
[2021-03-08] MEDS: SEVELAMER CARBONATE 800 MG TAB (FP) PO SCH ×2 (09:08→13:44)
[2021-03-08] MEDS: CARVEDILOL 6.25 MG TABLET (FP) PO SCH ×2 (09:09→21:19)
[2021-03-08] MEDS: VITAMIN B COMP W-C 1 EA TABLET (NEPHRO-VITE) PO SCH ×2 (09:09→13:42)
[2021-03-08] MEDS: PANTOPRAZOLE 20 MG TABLET PO SCH ×2 (09:10→13:44)
[2021-03-08] MEDS: NIFEdipine E.R. 30 MG TABLET PO SCH ×2 (09:10→13:42)
[2021-03-08 09:48] LABS: BASO % 0.3 % (0-2.0); HEMATOCRIT 22.1 % (35.4-49); HEMOGLOBIN 7.3 GM/dL (11.7-16.9); LYMPH % 6.3 % (8-40); MCH 27.1 pg (25.7-33.7); MEAN CELL VOLUME 82.1 fl (80-96); MEAN PLT VOLUME 8.2 fl (7.5-11.1); MONO % 8.8 % (3.8-10.2); NEUT % 84.6 % (42.8-82.8); PLATELET COUNT 129 10^3/uL (134-434); RBC 2.69 M/mm3 (4.00-5.60); RDW 21.4 % (11.9-15.9); WHITE BLOOD COUNT 5.3 K/mm3 (4.0-10.0)
[2021-03-08] MEDS ORDERED: SODIUM CHLORIDE 250 ML IV PRN ×4 (10:00→20:34)
[2021-03-08] MEDS ORDERED: EPOETIN ALFA-EPBX 20,000 UNIT/ML VIAL IVPUSH ONE (10:00)
[2021-03-08 10:06] LABS: CHLORIDE 96 mmol/L (98-107); SODIUM 133 mmol/L (136-145)
[2021-03-08 10:09] LABS: ANION GAP 8 MMOL/L (8-16); BLOOD UREA NITROGEN 39.5 mg/dL (7-18); CO2 29 mmol/L (21-32); GLUCOSE,RANDOM 240 mg/dL (74-106)
[2021-03-08 10:22] LABS: CALCIUM 6.3 mg/dL (8.5-10.1); CREATININE 6.9 mg/dL (0.55-1.3)
[2021-03-08] MEDS ORDERED: CALCIUM (OYSTER SHELL) 500 MG TABLET (FP) PO SCH (11:00)
[2021-03-08 11:12] LABS: ANISOCYTOSIS 1+; MACROCYTOSIS 0; OVALOCYTE 1+; PLATELET ESTIMATE DECREASED; TARGET CELLS 1+
[2021-03-08 11:54] LABS: LDH 195 U/L (87-246)
[2021-03-08] MEDS ORDERED: PT OWN MED DRAWER 7, Y5N ONE (13:39)
[2021-03-08] MEDS: BUDESONIDE/FORMETEROL FUMARATE 80/4.5 mcg INHALER IH SCH ×2 (13:42→23:48)
[2021-03-08] MEDS: HEPARIN NA (PORCINE) 5,000 UNITS/ML 1ML VIAL SQ SCH (13:42)
[2021-03-08] MEDS ORDERED: CALCIUM GLUCONATE 10% - 1,000 MG/10 ML VIAL IVPB ONE (14:00)
[2021-03-08] MEDS ORDERED: CALCITRIOL 0.25 MCG CAPSULE (FP) PO ONE (14:03)
[2021-03-08] MEDS ORDERED: PARICALCITOL 5 MCG/ML VIAL IVPUSH ONE (14:04)
[2021-03-08] MEDS ORDERED: CALCITRIOL 0.25 MCG CAPSULE (FP) PO SCH (14:15)
[2021-03-08] MEDS ORDERED: CALCIUM 500MG/VIT-D 200 UNITS COMBO TABLET (FP) PO SCH (14:15)
[2021-03-08] MEDS ORDERED: CALCIUM ACETATE 667 MG CAPSULE (FP) PO SCH (17:30)
[2021-03-08] MEDS ORDERED: BENZOCAINE/MENTH/CETYLPYRD CL 1 EACH LOZENGE MM PRN (18:12)
[2021-03-08] MEDS ORDERED: guaiFENesin/D-M SUGAR-FREE/ACLHOL-FREE 118 ML BOTTLE PO PRN ×2 (18:12→20:34)
[2021-03-08] MEDS ORDERED: methylPREDNISolone NA SUCC 40 MG/1 ML VIAL IVPUSH ONE (18:42)
[2021-03-08] MEDS ORDERED: MAGNESIUM SULF 50% (8.12 MEQ/2 ML-1 GM VIAL) IVPB ONE (18:52)
[2021-03-08] MEDS ORDERED: LABETALOL HCL 5 MG/1 ML (100MG/20 ML VIAL) IVPUSH ONE ×2 (19:27→20:34)
[2021-03-08] MEDS ORDERED: FUROSEMIDE 40 MG/4 ML INJECTABLE VIAL IVPUSH ONE ×2 (19:29→20:32)
[2021-03-08 20:15] LABS: CHLORIDE 98 mmol/L (98-107); SODIUM 135 mmol/L (136-145)
[2021-03-08 20:18] LABS: ALBUMIN 2.7 g/dl (3.4-5.0); ANION GAP 10 MMOL/L (8-16); BLOOD UREA NITROGEN 28.2 mg/dL (7-18); CO2 27 mmol/L (21-32); GLUCOSE,RANDOM 237 mg/dL (74-106)
[2021-03-08 20:18] LABS: ARTERIAL BLD GAS O2 SATURATION 99.5 % (95-98); ARTERIAL BLOOD GAS BASE EXCESS 2.1 mmol/L (-2-2); ARTERIAL BLOOD GAS PO2 243.9 mmHg (80-100); ARTERIAL BLOOD GAS pH 7.303 (7.350-7.450)
[2021-03-08 20:20] LABS: ALLENS TEST POSITIVE
[2021-03-08 20:21] LABS: SGOT/AST 22 U/L (15-37); SGPT/ALT 36 U/L (13-61)
[2021-03-08 20:21] LABS: VENT MODE S/T; VENT RATE 18
[2021-03-08 20:22] LABS: BILIRUBIN,TOTAL 0.6 mg/dL (0.2-1)
[2021-03-08 20:23] LABS: TOT PROT 7.4 g/dl (6.4-8.2)
[2021-03-08 20:24] LABS: ALK PHOS 90 U/L (45-117)
[2021-03-08 20:26] LABS: CALCIUM 7.2 mg/dL (8.5-10.1)
[2021-03-08 20:27] LABS: ALBUMIN 3.2 g/dl (3.4-5.0); BLOOD UREA NITROGEN 27.4 mg/dL (7-18)
[2021-03-08 20:29] LABS: CALCIUM 6.6 mg/dL (8.5-10.1)
[2021-03-08 20:30] LABS: CREATININE 4.8 mg/dL (0.55-1.3)
[2021-03-08 20:31] LABS: BILIRUBIN,TOTAL 0.9 mg/dL (0.2-1)
[2021-03-08] MEDS ORDERED: POTASSIUM CHLORIDE TABS 20 MEQ TABLET.ER (FP) PO ONE (20:31)
[2021-03-08 20:32] LABS: TOT PROT 8.8 g/dl (6.4-8.2)
[2021-03-08] MEDS ORDERED: MAGNESIUM 2GM/50ML STERILE WATER IVPB IVPB ONE (20:34)
[2021-03-08] MEDS ORDERED: ALBUTEROL SO4 HFA INHALER IH PRN (20:34)
[2021-03-08] MEDS ORDERED: AMMONIUM LACTATE 12% LOTION 225 GM BOTTLE TP PRN (20:34)
[2021-03-08] MEDS ORDERED: ALBUTEROL SO4 2.5/IPRATROPIUM 0.5 INH SOL 3 ML VIAL.NEB. NEB STA (20:37)
[2021-03-08] MEDS ORDERED: methylPREDNISolone NA SUCC 40 MG/1 ML VIAL IVPUSH SCH (21:00)
[2021-03-08] MEDS: APIXABAN 2.5 MG TABLET PO SCH (21:19)
[2021-03-08] MEDS: methylPREDNISolone NA SUCC 40 MG/1 ML VIAL IVPUSH SCH (21:19)
[2021-03-08] MEDS ORDERED: APIXABAN 2.5 MG TABLET PO SCH (22:00)
[2021-03-09] MEDS: methylPREDNISolone NA SUCC 40 MG/1 ML VIAL IVPUSH SCH ×4 (02:50→21:53)
[2021-03-09] MEDS ORDERED: PT OWN MED DRAWER 7, Y5N ONE (05:48)
[2021-03-09] MEDS: INSULIN SLIDING SCALE (NOVOLOG) 1 VIAL SQ SCH ×4 (06:30→22:01)
[2021-03-09] MEDS: ALBUTEROL SO4 2.5/IPRATROPIUM 0.5 INH SOL 3 ML VIAL.NEB. NEB SCH ×4 (07:45→20:30)
[2021-03-09 07:48] LABS: HEMATOCRIT 25.2 % (35.4-49); HEMOGLOBIN 8.2 GM/dL (11.7-16.9); MCH 26.7 pg (25.7-33.7); MCHC 32.5 g/dl (32.0-35.9); MEAN PLT VOLUME 8.4 fl (7.5-11.1); PLATELET COUNT 137 10^3/uL (134-434); RBC 3.07 M/mm3 (4.00-5.60); RDW 20.6 % (11.9-15.9); WHITE BLOOD COUNT 13.9 K/mm3 (4.0-10.0)
[2021-03-09 08:13] LABS: ALBUMIN 2.8 g/dl (3.4-5.0); BLOOD UREA NITROGEN 37.8 mg/dL (7-18); MAGNESIUM 2.3 mg/dL (1.8-2.4)
[2021-03-09 08:16] LABS: CREATININE 5.8 mg/dL (0.55-1.3); PHOSPHOROUS 2.9 mg/dL (2.5-4.9)
[2021-03-09 08:17] LABS: BILIRUBIN,TOTAL 0.9 mg/dL (0.2-1); TOT PROT 7.7 g/dl (6.4-8.2)
[2021-03-09 09:53] LABS: ANISOCYTOSIS 2+; MACROCYTOSIS 0; PLATELET ESTIMATE NORMAL
[2021-03-09] MEDS: CARVEDILOL 6.25 MG TABLET (FP) PO SCH ×2 (09:53→21:53)
[2021-03-09] MEDS: APIXABAN 2.5 MG TABLET PO SCH ×2 (09:53→21:53)
[2021-03-09] MEDS: VITAMIN B COMP W-C 1 EA TABLET (NEPHRO-VITE) PO SCH (09:53)
[2021-03-09] MEDS: PANTOPRAZOLE 20 MG TABLET PO SCH (09:53)
[2021-03-09] MEDS: NIFEdipine E.R. 30 MG TABLET PO SCH (10:03)
[2021-03-09] MEDS: BUDESONIDE/FORMETEROL FUMARATE 80/4.5 mcg INHALER IH SCH ×2 (10:10→22:00)
[2021-03-09] MEDS ORDERED: INSULIN (NOVOLOG) ASPART 100 UNITS/ML 10ML VIAL ONE (12:22)
[2021-03-09] MEDS ORDERED: PARICALCITOL 5 MCG/ML VIAL IVPUSH ONE ×2 (13:00→14:04)
[2021-03-09] MEDS ORDERED: EPOETIN ALFA-EPBX 20,000 UNIT/ML VIAL IVPUSH ONE ×2 (13:00→14:04)
[2021-03-09] MEDS: MINERAL OIL/PET HY-PHL TOPICAL OINTMENT 454 GM JAR TP SCH (15:25)
[2021-03-09] MEDS: CALCIUM CARBONATE 650 MG TABLET PO SCH (15:26)
[2021-03-09] MEDS: INSULIN (LEVEMIR) 100 UNITS/ML UNITS SQ SCH (22:02)
[2021-03-10] MEDS: methylPREDNISolone NA SUCC 40 MG/1 ML VIAL IVPUSH SCH ×4 (03:30→21:19)
[2021-03-10] MEDS: INSULIN SLIDING SCALE (NOVOLOG) 1 VIAL SQ SCH ×4 (06:37→21:30)
[2021-03-10] MEDS: ALBUTEROL SO4 2.5/IPRATROPIUM 0.5 INH SOL 3 ML VIAL.NEB. NEB SCH ×4 (07:58→19:30)
[2021-03-10 08:57] LABS: ALBUMIN 2.7 g/dl (3.4-5.0); BLOOD UREA NITROGEN 53.4 mg/dL (7-18); MAGNESIUM 2.3 mg/dL (1.8-2.4)
[2021-03-10 09:00] LABS: CREATININE 5.9 mg/dL (0.55-1.3)
[2021-03-10 09:02] LABS: BILIRUBIN,TOTAL 0.6 mg/dL (0.2-1); HEMOGLOBIN 8.5 GM/dL (11.7-16.9); LYMPH % 3.4 % (8-40); MCH 26.5 pg (25.7-33.7); MCHC 32.5 g/dl (32.0-35.9); MEAN CELL VOLUME 81.6 fl (80-96); MEAN PLT VOLUME 8.4 fl (7.5-11.1); MONO % 4.4 % (3.8-10.2); NEUT % 92.2 % (42.8-82.8); PLATELET COUNT 151 10^3/uL (134-434); RBC 3.19 M/mm3 (4.00-5.60); RDW 20.4 % (11.9-15.9); TOT PROT 7.6 g/dl (6.4-8.2); WHITE BLOOD COUNT 11.8 K/mm3 (4.0-10.0)
[2021-03-10] MEDS: CALCIUM CARBONATE 650 MG TABLET PO SCH (09:15)
[2021-03-10] MEDS: APIXABAN 2.5 MG TABLET PO SCH (09:16)
[2021-03-10] MEDS: CARVEDILOL 6.25 MG TABLET (FP) PO SCH ×2 (09:16→21:19)
[2021-03-10] MEDS: PANTOPRAZOLE 20 MG TABLET PO SCH (09:16)
[2021-03-10] MEDS: MINERAL OIL/PET HY-PHL TOPICAL OINTMENT 454 GM JAR TP SCH (09:16)
[2021-03-10] MEDS: VITAMIN B COMP W-C 1 EA TABLET (NEPHRO-VITE) PO SCH (09:16)
[2021-03-10] MEDS: NIFEdipine E.R. 30 MG TABLET PO SCH (09:16)
[2021-03-10] MEDS: BUDESONIDE/FORMETEROL FUMARATE 80/4.5 mcg INHALER IH SCH ×2 (09:17→21:19)
[2021-03-10 10:05] LABS: ANISOCYTOSIS 2+; MACROCYTOSIS 0; PLATELET ESTIMATE DECREASED
[2021-03-10] MEDS ORDERED: SODIUM CHLORIDE 250 ML IV PRN (11:29)
[2021-03-10] MEDS: HEPARIN NA (PORCINE) 5,000 UNITS/ML 1ML VIAL SQ SCH ×2 (14:01→21:19)
[2021-03-10] MEDS: INSULIN (LEVEMIR) 100 UNITS/ML UNITS SQ SCH (21:19)
[2021-03-11] MEDS: INSULIN SLIDING SCALE (NOVOLOG) 1 VIAL SQ SCH ×4 (07:14→21:42)
[2021-03-11] MEDS: HEPARIN NA (PORCINE) 5,000 UNITS/ML 1ML VIAL SQ SCH ×3 (07:14→21:42)
[2021-03-11] MEDS: ALBUTEROL SO4 2.5/IPRATROPIUM 0.5 INH SOL 3 ML VIAL.NEB. NEB SCH ×5 (07:35→20:25)
[2021-03-11] MEDS ORDERED: EPOETIN ALFA-EPBX 20,000 UNIT/ML VIAL IVPUSH ONE (08:00)
[2021-03-11 08:56] LABS: HEMATOCRIT 27.1 % (35.4-49); HEMOGLOBIN 8.6 GM/dL (11.7-16.9); MCH 26.3 pg (25.7-33.7); MCHC 31.9 g/dl (32.0-35.9); MEAN CELL VOLUME 82.4 fl (80-96); MEAN PLT VOLUME 8.7 fl (7.5-11.1); PLATELET COUNT 157 10^3/uL (134-434); RBC 3.28 M/mm3 (4.00-5.60); RDW 20.4 % (11.9-15.9); WHITE BLOOD COUNT 12.9 K/mm3 (4.0-10.0)
[2021-03-11 09:20] LABS: HIV INTERPRETATION NEGATIVE (NEGATIVE)
[2021-03-11] MEDS ORDERED: PT OWN MED DRAWER 7, Y5N ONE (09:26)
[2021-03-11 09:45] LABS: ANISOCYTOSIS 0; MACROCYTOSIS 0; OVALOCYTE 1+; PLATELET ESTIMATE DECREASED
[2021-03-11 09:50] LABS: CHLORIDE 93 mmol/L (98-107); SODIUM 130 mmol/L (136-145)
[2021-03-11] MEDS: CALCIUM CARBONATE 650 MG TABLET PO SCH (09:50)
[2021-03-11] MEDS: VITAMIN B COMP W-C 1 EA TABLET (NEPHRO-VITE) PO SCH (09:50)
[2021-03-11] MEDS: PANTOPRAZOLE 20 MG TABLET PO SCH (09:50)
[2021-03-11] MEDS: MINERAL OIL/PET HY-PHL TOPICAL OINTMENT 454 GM JAR TP SCH (09:51)
[2021-03-11] MEDS: BUDESONIDE/FORMETEROL FUMARATE 80/4.5 mcg INHALER IH SCH ×2 (09:51→21:44)
[2021-03-11 10:08] LABS: ALBUMIN 2.4 g/dl (3.4-5.0); ANION GAP 15 MMOL/L (8-16); CO2 22 mmol/L (21-32); GLUCOSE,RANDOM 370 mg/dL (74-106)
[2021-03-11 10:11] LABS: CREATININE 7.4 mg/dL (0.55-1.3); SGOT/AST 48 U/L (15-37); SGPT/ALT 67 U/L (13-61)
[2021-03-11 10:12] LABS: PHOSPHOROUS 1.9 mg/dL (2.5-4.9)
[2021-03-11 10:13] LABS: BILIRUBIN,TOTAL 0.4 mg/dL (0.2-1)
[2021-03-11] MEDS ORDERED: CALCIUM GLUCONATE IN NACL 1 GM/50 ML BAG IVPB ONE (11:32)
[2021-03-11] MEDS ORDERED: CALCIUM 500MG/VIT-D 200 UNITS COMBO TABLET (FP) PO SCH (11:45)
[2021-03-11 12:01] LABS: ALK PHOS 116 U/L (45-117); BLOOD UREA NITROGEN 86.3 mg/dL (7-18); CALCIUM 6.3 mg/dL (8.5-10.1); MAGNESIUM 2.2 mg/dL (1.8-2.4)
[2021-03-11] MEDS: CARVEDILOL 6.25 MG TABLET (FP) PO SCH ×2 (12:29→21:42)
[2021-03-11] MEDS: NIFEdipine E.R. 30 MG TABLET PO SCH (12:30)
[2021-03-11] MEDS ORDERED: NAPH,MB-DB/K PH,MBDB POWDER PACKET PO ONE (12:45)
[2021-03-11] MEDS: CALCITRIOL 0.25 MCG CAPSULE (FP) PO SCH (18:12)
[2021-03-11] MEDS: CALCIUM 500MG/VIT-D 200 UNITS COMBO TABLET (FP) PO SCH ×2 (18:12→21:42)
[2021-03-11] MEDS: INSULIN (LEVEMIR) 100 UNITS/ML UNITS SQ SCH (21:42)
[2021-03-12] MEDS: HEPARIN NA (PORCINE) 5,000 UNITS/ML 1ML VIAL SQ SCH ×3 (06:10→21:27)
[2021-03-12] MEDS: INSULIN SLIDING SCALE (NOVOLOG) 1 VIAL SQ SCH ×4 (06:10→21:30)
[2021-03-12] MEDS ORDERED: SODIUM CHLORIDE 250 ML IV PRN ×2 (06:56→21:32)
[2021-03-12] MEDS ORDERED: EPOETIN ALFA-EPBX 20,000 UNIT/ML VIAL IVPUSH ONE (07:00)
[2021-03-12] MEDS: ALBUTEROL SO4 2.5/IPRATROPIUM 0.5 INH SOL 3 ML VIAL.NEB. NEB SCH ×4 (08:59→20:22)
[2021-03-12] MEDS ORDERED: PARICALCITOL 5 MCG/ML VIAL IVPUSH ONE (10:15)
[2021-03-12] MEDS ORDERED: PT OWN MED DRAWER 7, Y5N ONE (11:06)
[2021-03-12] MEDS: CALCIUM 500MG/VIT-D 200 UNITS COMBO TABLET (FP) PO SCH ×2 (11:13→21:27)
[2021-03-12] MEDS: PANTOPRAZOLE 20 MG TABLET PO SCH (11:13)
[2021-03-12] MEDS: CARVEDILOL 6.25 MG TABLET (FP) PO SCH ×2 (11:14→21:27)
[2021-03-12] MEDS: BENZOCAINE/MENTH/CETYLPYRD CL 1 EACH LOZENGE MM PRN (11:14)
[2021-03-12] MEDS: CALCITRIOL 0.25 MCG CAPSULE (FP) PO SCH (11:14)
[2021-03-12] MEDS: VITAMIN B COMP W-C 1 EA TABLET (NEPHRO-VITE) PO SCH (11:14)
[2021-03-12] MEDS: NIFEdipine E.R. 30 MG TABLET PO SCH (11:14)
[2021-03-12] MEDS: BUDESONIDE/FORMETEROL FUMARATE 80/4.5 mcg INHALER IH SCH ×2 (11:15→21:31)
[2021-03-12] MEDS: MINERAL OIL/PET HY-PHL TOPICAL OINTMENT 454 GM JAR TP SCH (11:20)
[2021-03-12 17:07] LABS: FREE KAPPA,SERUM 404.7 mg/L (3.3-19.4)
[2021-03-12] MEDS ORDERED: INSULIN (LEVEMIR) 100 UNITS/ML UNITS SQ ONE (21:29)
[2021-03-12] MEDS ORDERED: INSULIN (NOVOLOG) ASPART 100 UNITS/ML 10ML VIAL ONE (21:29)
[2021-03-12] MEDS: INSULIN (LEVEMIR) 100 UNITS/ML UNITS SQ SCH (21:30)
[2021-03-13] MEDS: BENZOCAINE/MENTH/CETYLPYRD CL 1 EACH LOZENGE MM PRN (05:59)
[2021-03-13] MEDS: HEPARIN NA (PORCINE) 5,000 UNITS/ML 1ML VIAL SQ SCH ×2 (05:59→15:11)
[2021-03-13] MEDS: INSULIN SLIDING SCALE (NOVOLOG) 1 VIAL SQ SCH ×4 (05:59→21:29)
[2021-03-13 06:46] LABS: BASO % 0.1 % (0-2.0); EOS % 0.6 % (0-4.5); HEMATOCRIT 26.3 % (35.4-49); HEMOGLOBIN 8.6 GM/dL (11.7-16.9); LYMPH % 10.9 % (8-40); MCH 26.3 pg (25.7-33.7); MCHC 32.7 g/dl (32.0-35.9); MEAN CELL VOLUME 80.5 fl (80-96); MEAN PLT VOLUME 8.1 fl (7.5-11.1); MONO % 15.3 % (3.8-10.2); NEUT % 73.1 % (42.8-82.8); PLATELET COUNT 133 10^3/uL (134-434); RBC 3.26 M/mm3 (4.00-5.60); RDW 19.5 % (11.9-15.9); WHITE BLOOD COUNT 8.9 K/mm3 (4.0-10.0)
[2021-03-13 07:02] LABS: CHLORIDE 98 mmol/L (98-107); SODIUM 134 mmol/L (136-145)
[2021-03-13 07:05] LABS: ALBUMIN 2.2 g/dl (3.4-5.0); ANION GAP 8 MMOL/L (8-16); BLOOD UREA NITROGEN 67.2 mg/dL (7-18); CO2 28 mmol/L (21-32); GLUCOSE,RANDOM 166 mg/dL (74-106); MAGNESIUM 1.9 mg/dL (1.8-2.4)
[2021-03-13 07:08] LABS: CREATININE 6.9 mg/dL (0.55-1.3); SGOT/AST 15 U/L (15-37); SGPT/ALT 39 U/L (13-61)
[2021-03-13 07:09] LABS: BILIRUBIN,TOTAL 0.4 mg/dL (0.2-1)
[2021-03-13 07:17] LABS: ALK PHOS 71 U/L (45-117); CALCIUM 6.5 mg/dL (8.5-10.1)
[2021-03-13] MEDS: ALBUTEROL SO4 2.5/IPRATROPIUM 0.5 INH SOL 3 ML VIAL.NEB. NEB SCH ×4 (07:40→20:45)
[2021-03-13 10:42] LABS: HEMATOCRIT 24.9 % (35.4-49); HEMOGLOBIN 8.1 GM/dL (11.7-16.9); MCH 26.4 pg (25.7-33.7); MCHC 32.6 g/dl (32.0-35.9); MEAN CELL VOLUME 81.1 fl (80-96); MEAN PLT VOLUME 8.5 fl (7.5-11.1); PLATELET COUNT 134 10^3/uL (134-434); RBC 3.08 M/mm3 (4.00-5.60); RDW 20.3 % (11.9-15.9); WHITE BLOOD COUNT 8.2 K/mm3 (4.0-10.0)
[2021-03-13] MEDS: CALCIUM 500MG/VIT-D 200 UNITS COMBO TABLET (FP) PO SCH ×2 (10:48→21:29)
[2021-03-13] MEDS: CARVEDILOL 6.25 MG TABLET (FP) PO SCH ×2 (10:48→21:29)
[2021-03-13] MEDS: VITAMIN B COMP W-C 1 EA TABLET (NEPHRO-VITE) PO SCH (10:48)
[2021-03-13] MEDS: NIFEdipine E.R. 30 MG TABLET PO SCH (10:48)
[2021-03-13] MEDS: PANTOPRAZOLE 20 MG TABLET PO SCH (10:48)
[2021-03-13] MEDS: MINERAL OIL/PET HY-PHL TOPICAL OINTMENT 454 GM JAR TP SCH (10:49)
[2021-03-13] MEDS: CALCITRIOL 0.25 MCG CAPSULE (FP) PO SCH ×2 (10:49→21:29)
[2021-03-13] MEDS: BUDESONIDE/FORMETEROL FUMARATE 80/4.5 mcg INHALER IH SCH ×2 (10:54→21:36)
[2021-03-13 11:03] LABS: CHLORIDE 97 mmol/L (98-107); SODIUM 134 mmol/L (136-145)
[2021-03-13 11:06] LABS: ANION GAP 7 MMOL/L (8-16); BLOOD UREA NITROGEN 66.4 mg/dL (7-18); CO2 31 mmol/L (21-32); GLUCOSE,RANDOM 109 mg/dL (74-106)
[2021-03-13 11:09] LABS: CREATININE 6.5 mg/dL (0.55-1.3)
[2021-03-13 11:18] LABS: CALCIUM 6.4 mg/dL (8.5-10.1)
[2021-03-13] MEDS ORDERED: CALCIUM GLUCONATE IN NACL 1 GM/50 ML BAG IVPB ONE (11:30)
[2021-03-13] MEDS: NAPH,MB-DB/K PH,MBDB POWDER PACKET PO SCH ×4 (11:30→21:29)
[2021-03-13] MEDS ORDERED: POTASSIUM CHLORIDE TABS 20 MEQ TABLET.ER (FP) PO ONE (11:31)
[2021-03-13] MEDS ORDERED: SODIUM CHLORIDE 250 ML IV PRN (11:34)
[2021-03-13] MEDS: INSULIN (LEVEMIR) 100 UNITS/ML UNITS SQ SCH (21:35)
[2021-03-14] MEDS: INSULIN SLIDING SCALE (NOVOLOG) 1 VIAL SQ SCH ×4 (06:09→21:39)
[2021-03-14] MEDS: ALBUTEROL SO4 2.5/IPRATROPIUM 0.5 INH SOL 3 ML VIAL.NEB. NEB SCH ×4 (07:20→20:30)
[2021-03-14 07:39] LABS: INR 1.28 (0.83-1.09)
[2021-03-14 07:53] LABS: BASO % 0.1 % (0-2.0); EOS % 1.6 % (0-4.5); HEMOGLOBIN 8.2 GM/dL (11.7-16.9); LYMPH % 12.7 % (8-40); MCH 26.5 pg (25.7-33.7); MCHC 32.9 g/dl (32.0-35.9); MEAN CELL VOLUME 80.5 fl (80-96); MEAN PLT VOLUME 8.1 fl (7.5-11.1); MONO % 11.7 % (3.8-10.2); NEUT % 73.9 % (42.8-82.8); PLATELET COUNT 134 10^3/uL (134-434); RDW 20.2 % (11.9-15.9); WHITE BLOOD COUNT 8.4 K/mm3 (4.0-10.0)
[2021-03-14 07:56] LABS: CHLORIDE 98 mmol/L (98-107); SODIUM 136 mmol/L (136-145)
[2021-03-14 08:00] LABS: ALBUMIN 2.3 g/dl (3.4-5.0); ANION GAP 7 MMOL/L (8-16); CO2 31 mmol/L (21-32); GLUCOSE,RANDOM 138 mg/dL (74-106)
[2021-03-14 08:02] LABS: BLOOD UREA NITROGEN 52.8 mg/dL (7-18); SGOT/AST 21 U/L (15-37); SGPT/ALT 52 U/L (13-61)
[2021-03-14 08:04] LABS: TOT PROT 6.4 g/dl (6.4-8.2)
[2021-03-14 08:07] LABS: ALK PHOS 59 U/L (45-117); BILIRUBIN,TOTAL 0.9 mg/dL (0.2-1)
[2021-03-14 08:28] LABS: CALCIUM 6.9 mg/dL (8.5-10.1)
[2021-03-14] MEDS: CALCITRIOL 0.25 MCG CAPSULE (FP) PO SCH ×2 (11:29→21:39)
[2021-03-14] MEDS: CALCIUM 500MG/VIT-D 200 UNITS COMBO TABLET (FP) PO SCH ×2 (11:30→21:39)
[2021-03-14] MEDS: CARVEDILOL 6.25 MG TABLET (FP) PO SCH ×2 (11:30→21:38)
[2021-03-14] MEDS: NIFEdipine E.R. 30 MG TABLET PO SCH (11:30)
[2021-03-14] MEDS: PANTOPRAZOLE 20 MG TABLET PO SCH (11:31)
[2021-03-14] MEDS: VITAMIN B COMP W-C 1 EA TABLET (NEPHRO-VITE) PO SCH (11:31)
[2021-03-14] MEDS: BUDESONIDE/FORMETEROL FUMARATE 80/4.5 mcg INHALER IH SCH ×2 (11:34→21:40)
[2021-03-14] MEDS: MINERAL OIL/PET HY-PHL TOPICAL OINTMENT 454 GM JAR TP SCH (11:45)
[2021-03-14] MEDS ORDERED: CALCIUM GLUCONATE IN NACL 1 GM/50 ML BAG IVPB ONE (15:29)
[2021-03-14] MEDS: INSULIN (LEVEMIR) 100 UNITS/ML UNITS SQ SCH (21:38)
[2021-03-14] MEDS: APIXABAN 2.5 MG TABLET PO SCH (21:49)
[2021-03-15] MEDS: INSULIN SLIDING SCALE (NOVOLOG) 1 VIAL SQ SCH ×3 (06:01→16:51)
[2021-03-15] MEDS: ALBUTEROL SO4 2.5/IPRATROPIUM 0.5 INH SOL 3 ML VIAL.NEB. NEB SCH ×3 (08:34→15:49)
[2021-03-15] MEDS: CALCIUM 500MG/VIT-D 200 UNITS COMBO TABLET (FP) PO SCH (09:34)
[2021-03-15] MEDS: NIFEdipine E.R. 30 MG TABLET PO SCH (09:35)
[2021-03-15] MEDS: CALCITRIOL 0.25 MCG CAPSULE (FP) PO SCH (09:35)
[2021-03-15] MEDS: PANTOPRAZOLE 20 MG TABLET PO SCH (09:35)
[2021-03-15] MEDS: VITAMIN B COMP W-C 1 EA TABLET (NEPHRO-VITE) PO SCH (09:35)
[2021-03-15] MEDS: CARVEDILOL 6.25 MG TABLET (FP) PO SCH (09:35)
[2021-03-15] MEDS: BUDESONIDE/FORMETEROL FUMARATE 80/4.5 mcg INHALER IH SCH (09:35)
[2021-03-15] MEDS: APIXABAN 2.5 MG TABLET PO SCH (09:35)
[2021-03-15] MEDS: MINERAL OIL/PET HY-PHL TOPICAL OINTMENT 454 GM JAR TP SCH (09:36)
[2021-03-15] MEDS ORDERED: SODIUM CHLORIDE 250 ML IV PRN (12:24)
[2021-03-15 13:11] VITALS: BMI 30.8
[2021-03-15 15:32] VITALS: BP 153/79; PULSE 102; TEMP 98.9
[2021-03-16] MEDS ORDERED: EPOETIN ALFA-EPBX 20,000 UNIT/ML VIAL SQ ONE (12:24)
== END 2021-03-15 17:35 | disposition home health service (06) | DRG 987 ==
LOC: JER 17:56 → JERBED 21:46 → JICU 03-01 02:55 → J8W 03-02 18:40 → J7W 03-07 16:17 → J4W 03-08 20:15
PROVIDERS: ADMIT Internal Medicine; ATTEND Nurse Practitioner Acute Care
PROC: 0DB98ZX Excision of Duodenum, Via Natural or Artificial Opening Endoscopic, Diagnostic (ICD-10-PCS; 2021-03-04)
PROC: 0DB68ZX Excision of Stomach, Via Natural or Artificial Opening Endoscopic, Diagnostic (ICD-10-PCS; 2021-03-04)
PROC: 5A1D90Z Performance of Urinary Filtration, Continuous, Greater than 18 hours Per Day (ICD-10-PCS; 2021-03-04)
PROC: 07BH3ZX Excision of Right Inguinal Lymphatic, Percutaneous Approach, Diagnostic (ICD-10-PCS; principal; 2021-03-13)
DX: A09 Infectious gastroenteritis and colitis, unspecified (principal); N18.6 End stage renal disease; J96.92 Respiratory failure, unspecified with hypercapnia; J81.0 Acute pulmonary edema; I12.0 Hypertensive chronic kidney disease with stage 5 chronic kidney disease or end stage renal disease; J90 Pleural effusion, not elsewhere classified; I16.1 Hypertensive emergency; I69.354 Hemiplegia and hemiparesis following cerebral infarction affecting left non-dominant side; E11.22 Type 2 diabetes mellitus with diabetic chronic kidney disease; I44.0 Atrioventricular block, first degree; E87.5 Hyperkalemia; Z99.2 Dependence on renal dialysis; D50.9 Iron deficiency anemia, unspecified; R94.5 Abnormal results of liver function studies; K29.80 Duodenitis without bleeding; R74.01 Elevation of levels of liver transaminase levels; D63.1 Anemia in chronic kidney disease; L97.509 Non-pressure chronic ulcer of other part of unspecified foot with unspecified severity; R59.0 Localized enlarged lymph nodes; E11.621 Type 2 diabetes mellitus with foot ulcer; E83.51 Hypocalcemia; K29.60 Other gastritis without bleeding; Z79.4 Long term (current) use of insulin
CPT/HCPCS: 36415; 36430; 36600; 71045-TC-FY; 71250-TC; 74176-TC; 76604; 76705-TC; 76882-TC-RT-FY; 76942-TC; 80048; 80053; 82272; 82310; 82550; 82553; 82607; 82728; 82746; 82803; 82962; 83010; 83516; 83540; 83550; 83615; 83735; 83883; 83970; 84100; 84155; 84165; 84484; 85025; 85027; 85045; 85610; 86038; 86705; 86706; 86707; 86708; 86850; 86880; 86900; 86901; 86922; 87040; 87045; 87046; 87324; 87340; 87350; 87389; 87449; 87517; 87522; 87798; 87899; 88305-TC; 93005; 93010; 93306-TC; 93971; 94010; 94640; 94660; 94761; 97116-GP; 97162-GP; 99291; 99292; C9803; J1644; J1756; P9058; Q5106; U0003; U0005

== ENCOUNTER 2022-04-22 12:20 | Inpatient (IN) | payer OTHER ==
[~2022-04-22 12:20] MED LIST: SODIUM CHLORIDE 250 ML IV PRN
[2022-04-22] MEDS ORDERED: ALBUTEROL SO4 2.5/IPRATROPIUM 0.5 INH SOL 3 ML VIAL.NEB. NEB ONE ×3 (12:56→21:03)
[2022-04-22 14:28] LABS: EOS % 1.3 % (0-4.5); HEMATOCRIT 26.1 % (35.4-49); HEMOGLOBIN 8.4 GM/dL (11.7-16.9); LYMPH % 5.2 % (8-40); MCH 27.9 pg (25.7-33.7); MCHC 32.1 g/dl (32.0-35.9); MEAN PLT VOLUME 8.4 fl (7.5-11.1); MONO % 4.9 % (3.8-10.2); NEUT % 87.6 % (42.8-82.8); PLATELET COUNT 235 10^3/uL (134-434); RDW 15.7 % (11.9-15.9); WHITE BLOOD COUNT 11.7 K/mm3 (4.0-10.0)
[2022-04-22 14:43] LABS: CHLORIDE 98 mmol/L (98-107); SODIUM 134 mmol/L (136-145)
[2022-04-22 14:45] LABS: CALCIUM 7.8 mg/dL (8.5-10.1)
[2022-04-22 14:46] LABS: ALBUMIN 2.7 g/dl (3.4-5.0); ANION GAP 11 MMOL/L (8-16); BLOOD UREA NITROGEN 41.6 mg/dL (7-18); CO2 25 mmol/L (21-32); GLUCOSE,RANDOM 77 mg/dL (74-106); MAGNESIUM 1.9 mg/dL (1.8-2.4)
[2022-04-22 14:49] LABS: SGOT/AST 7 U/L (15-37); SGPT/ALT 10 U/L (13-61)
[2022-04-22 14:50] LABS: TOT PROT 7.7 g/dl (6.4-8.2)
[2022-04-22 14:51] LABS: BILIRUBIN,TOTAL 0.5 mg/dL (0.2-1)
[2022-04-22 14:52] LABS: ALK PHOS 76 U/L (45-117)
[2022-04-22 14:54] LABS: CREATININE 12.1 mg/dL (0.55-1.3); N-TERMINAL BNP > 35000.0 pg/ml (5-125)
[2022-04-22] MEDS ORDERED: CALCIUM GLUCONATE 10% - 1,000 MG/10 ML VIAL IVPUSH ONE (15:11)
[2022-04-22] MEDS ORDERED: INSULIN REGULAR HUMAN 100 UNITS/ML *VIAL IVPUSH ONE (15:11)
[2022-04-22] MEDS ORDERED: DEXTROSE 50%-WATER - 25 GM/50 ML VIAL IVPUSH ONE (15:15)
[2022-04-22] MEDS ORDERED: CALCIUM GLUCONATE 10% - 1,000 MG/10 ML VIAL ONE (15:24)
[2022-04-22] MEDS ORDERED: DEXTROSE 50%-WATER 25 GM/50 ML DISP.SYRIN ONE ×3 (15:24→15:35)
[2022-04-22] MEDS ORDERED: FUROSEMIDE 40 MG/4 ML INJECTABLE VIAL IVPUSH ONE (16:46)
[2022-04-22] MEDS ORDERED: FUROSEMIDE 40 MG/4 ML INJECTABLE VIAL ONE (16:55)
[2022-04-22] MEDS ORDERED: EPOETIN ALFA-EPBX 4,000 UNIT/ML VIAL SQ ONE (17:32)
[2022-04-22] MEDS ORDERED: SODIUM ZIRCONIUM CYCLOSILICATE (LOKELMA) 5 GM PACKET ONE ×2 (18:05→22:03)
[2022-04-22 18:15] LABS: CHLORIDE 100 mmol/L (98-107); SODIUM 137 mmol/L (136-145)
[2022-04-22 18:17] LABS: CALCIUM 8.1 mg/dL (8.5-10.1)
[2022-04-22] MEDS: SODIUM ZIRCONIUM CYCLOSILICATE (LOKELMA) 5 GM PACKET PO SCH ×2 (18:17→22:39)
[2022-04-22 18:18] LABS: ANION GAP 13 MMOL/L (8-16); CO2 23 mmol/L (21-32)
[2022-04-22] MEDS ORDERED: CEFTRIAXONE 1,000 MG in DEXTROSE 5%-WATER - 50 ML IVPB ONE (18:26)
[2022-04-22] MEDS ORDERED: AZITHROMYCIN IVPB 500 MG in DEXTROSE 5%-WATER - 250 ML IVPB ONE (18:26)
[2022-04-22 18:39] LABS: CREATININE 12.4 mg/dL (0.55-1.3); GLUCOSE,RANDOM 34 mg/dL (74-106)
[2022-04-22] MEDS ORDERED: CEFTRIAXONE 1 GM/50 ML BAG ONE (20:33)
[2022-04-22] MEDS ORDERED: AZITHROMYCIN IVPB 500 MG/250 ML BAG IVPB ONE (20:44)
[2022-04-22] MEDS: ALBUTEROL SO4 2.5/IPRATROPIUM 0.5 INH SOL 3 ML VIAL.NEB. NEB SCH (21:03)
[2022-04-22] MEDS: methylPREDNISolone NA SUCC 40 MG/1 ML VIAL IVPUSH SCH (21:33)
[2022-04-22] MEDS ORDERED: hydrALAZINE HCL 50 MG TABLET (FP) ONE (22:03)
[2022-04-22] MEDS ORDERED: HEPARIN NA (PORCINE) 5,000 UNITS/ML 1ML VIAL ONE (22:03)
[2022-04-22] MEDS ORDERED: methylPREDNISolone NA SUCC 40 MG/1 ML VIAL ONE (22:04)
[2022-04-22] MEDS: hydrALAZINE HCL 50 MG TABLET (FP) PO SCH (22:39)
[2022-04-22] MEDS: HEPARIN NA (PORCINE) 5,000 UNITS/ML 1ML VIAL SQ SCH (22:39)
[2022-04-22] MEDS: INSULIN SLIDING SCALE (NOVOLOG) 1 VIAL SQ SCH (22:44)
[2022-04-23 00:17] VITALS: BMI 27.6
[2022-04-23] MEDS ORDERED: PNEUMOC 20-VAL CONJ-DIP CRM/PF 0.5 ML SYRINGE IM ONE ×2 (00:22→10:00)
[2022-04-23] MEDS: ALBUTEROL SO4 2.5/IPRATROPIUM 0.5 INH SOL 3 ML VIAL.NEB. NEB SCH ×5 (01:30→20:05)
[2022-04-23] MEDS: INSULIN SLIDING SCALE (NOVOLOG) 1 VIAL SQ SCH ×4 (06:25→21:45)
[2022-04-23] MEDS: HEPARIN NA (PORCINE) 5,000 UNITS/ML 1ML VIAL SQ SCH ×3 (06:25→21:44)
[2022-04-23 07:18] LABS: HEMOGLOBIN 7.7 GM/dL (11.7-16.9); MCH 27.8 pg (25.7-33.7); MCHC 32.1 g/dl (32.0-35.9); MEAN CELL VOLUME 86.7 fl (80-96); MEAN PLT VOLUME 8.3 fl (7.5-11.1); PLATELET COUNT 217 10^3/uL (134-434); RBC 2.77 M/mm3 (4.00-5.60); RDW 15.4 % (11.9-15.9); WHITE BLOOD COUNT 13.7 K/mm3 (4.0-10.0)
[2022-04-23 07:39] LABS: CHLORIDE 97 mmol/L (98-107); SODIUM 133 mmol/L (136-145)
[2022-04-23 07:41] LABS: ALBUMIN 2.5 g/dl (3.4-5.0); BLOOD UREA NITROGEN 51.1 mg/dL (7-18); CALCIUM 7.6 mg/dL (8.5-10.1); GLUCOSE,RANDOM 98 mg/dL (74-106)
[2022-04-23 07:44] LABS: CO2 22 mmol/L (21-32); SGOT/AST 8 U/L (15-37); SGPT/ALT 8 U/L (13-61)
[2022-04-23 07:46] LABS: BILIRUBIN,TOTAL 0.4 mg/dL (0.2-1); TOT PROT 7.4 g/dl (6.4-8.2)
[2022-04-23 07:47] LABS: ALK PHOS 70 U/L (45-117)
[2022-04-23 07:54] LABS: MAGNESIUM 2.1 mg/dL (1.8-2.4)
[2022-04-23 07:58] LABS: IRON SERUM 19 ug/dL (50-175); PHOSPHOROUS 4.9 mg/dL (2.5-4.9)
[2022-04-23 07:59] LABS: TOTAL IRON BINDING CAPACITY 106 ug/dL (250-450)
[2022-04-23] MEDS ORDERED: HEPARIN NA (PORCINE) 5,000 UNITS/ML 1ML VIAL IVPUSH ONE (08:00)
[2022-04-23] MEDS ORDERED: EPOETIN ALFA-EPBX 10,000 UNIT/ML VIAL SQ ONE (08:00)
[2022-04-23 08:09] LABS: ANION GAP 14 MMOL/L (8-16); CREATININE 13.1 mg/dL (0.55-1.3)
[2022-04-23] MEDS ORDERED: ENOXAPARIN NA (PORCINE) 40 MG/0.4 ML DISP.SYRIN SQ SCH (10:00)
[2022-04-23] MEDS: BUDESONIDE/FORMETEROL FUMARATE 160/4.5 mcg INHALER IH SCH ×2 (10:20→21:47)
[2022-04-23] MEDS: SEVELAMER CARBONATE 800 MG TAB (FP) PO SCH ×2 (12:12→21:12)
[2022-04-23] MEDS: hydrALAZINE HCL 50 MG TABLET (FP) PO SCH ×2 (12:12→21:44)
[2022-04-23] MEDS: amLODIPine BESYLATE 5 MG TABLET (FP) PO SCH (12:13)
[2022-04-23] MEDS: CEFTRIAXONE 1 GM in DEXTROSE 5%-WATER - 50 ML IVPB SCH (12:14)
[2022-04-23] MEDS: methylPREDNISolone NA SUCC 40 MG/1 ML VIAL IVPUSH SCH (12:14)
[2022-04-23] MEDS: AZITHROMYCIN IVPB 500 MG/250 ML BAG IVPB SCH (12:15)
[2022-04-23 13:05] LABS: ANISOCYTOSIS 0; HELMET CELLS 0; HOWELL-JOLLY BODIES 0; MACROCYTOSIS 0; OVALOCYTE 0; ROULEAU 0; SICKELED CELLS 0; TARGET CELLS 0; TEAR DROP CELLS 0; TOXIC GRANULATION 0
[2022-04-24] MEDS: INSULIN SLIDING SCALE (NOVOLOG) 1 VIAL SQ SCH ×4 (06:25→21:19)
[2022-04-24] MEDS: HEPARIN NA (PORCINE) 5,000 UNITS/ML 1ML VIAL SQ SCH ×3 (06:25→21:18)
[2022-04-24] MEDS: ALBUTEROL SO4 2.5/IPRATROPIUM 0.5 INH SOL 3 ML VIAL.NEB. NEB SCH ×4 (07:40→20:18)
[2022-04-24] MEDS: SEVELAMER CARBONATE 800 MG TAB (FP) PO SCH ×3 (08:50→17:08)
[2022-04-24] MEDS: CEFTRIAXONE 1 GM in DEXTROSE 5%-WATER - 50 ML IVPB SCH (09:15)
[2022-04-24] MEDS: FUROSEMIDE 40 MG/4 ML INJECTABLE VIAL IVPUSH SCH (09:16)
[2022-04-24] MEDS: methylPREDNISolone NA SUCC 40 MG/1 ML VIAL IVPUSH SCH (09:16)
[2022-04-24] MEDS: hydrALAZINE HCL 50 MG TABLET (FP) PO SCH ×2 (09:16→21:19)
[2022-04-24] MEDS: AZITHROMYCIN IVPB 500 MG/250 ML BAG IVPB SCH (09:18)
[2022-04-24] MEDS: BUDESONIDE/FORMETEROL FUMARATE 160/4.5 mcg INHALER IH SCH ×2 (09:19→21:20)
[2022-04-24] MEDS: amLODIPine BESYLATE 5 MG TABLET (FP) PO SCH (09:19)
[2022-04-24] MEDS ORDERED: SODIUM CHLORIDE 250 ML IV PRN (13:15)
[2022-04-24] MEDS ORDERED: EPOETIN ALFA-EPBX 10,000 UNIT/ML VIAL SQ ONE (14:00)
[2022-04-24 16:22] LABS: HEMOGLOBIN 7.4 GM/dL (11.7-16.9); MCH 27.9 pg (25.7-33.7); MCHC 32.2 g/dl (32.0-35.9); MEAN CELL VOLUME 86.7 fl (80-96); MEAN PLT VOLUME 8.7 fl (7.5-11.1); PLATELET COUNT 232 10^3/uL (134-434); RBC 2.66 M/mm3 (4.00-5.60); RDW 15.7 % (11.9-15.9); WHITE BLOOD COUNT 11.6 K/mm3 (4.0-10.0)
[2022-04-24 16:39] LABS: CHLORIDE 96 mmol/L (98-107); SODIUM 135 mmol/L (136-145)
[2022-04-24 16:42] LABS: ALBUMIN 2.6 g/dl (3.4-5.0); ANION GAP 13 MMOL/L (8-16); BLOOD UREA NITROGEN 41.2 mg/dL (7-18); CALCIUM 7.4 mg/dL (8.5-10.1); CO2 26 mmol/L (21-32); GLUCOSE,RANDOM 105 mg/dL (74-106); MAGNESIUM 1.9 mg/dL (1.8-2.4)
[2022-04-24 16:45] LABS: SGOT/AST 7 U/L (15-37); SGPT/ALT 8 U/L (13-61)
[2022-04-24 16:46] LABS: BILIRUBIN,TOTAL 0.2 mg/dL (0.2-1); TOT PROT 7.4 g/dl (6.4-8.2)
[2022-04-24 16:47] LABS: ALK PHOS 67 U/L (45-117)
[2022-04-24 17:05] LABS: CREATININE 8.5 mg/dL (0.55-1.3)
[2022-04-24 17:29] LABS: ANISOCYTOSIS 0; MACROCYTOSIS 0
[2022-04-25] MEDS: HEPARIN NA (PORCINE) 5,000 UNITS/ML 1ML VIAL SQ SCH ×3 (06:25→21:54)
[2022-04-25] MEDS: INSULIN SLIDING SCALE (NOVOLOG) 1 VIAL SQ SCH ×4 (06:26→21:54)
[2022-04-25] MEDS: ALBUTEROL SO4 2.5/IPRATROPIUM 0.5 INH SOL 3 ML VIAL.NEB. NEB SCH ×4 (07:50→20:52)
[2022-04-25 07:54] LABS: BASO % 0.2 % (0-2.0); EOS % 0.1 % (0-4.5); HEMOGLOBIN 7.4 GM/dL (11.7-16.9); MCHC 33.8 g/dl (32.0-35.9); MEAN CELL VOLUME 85.8 fl (80-96); MEAN PLT VOLUME 7.9 fl (7.5-11.1); MONO % 6.3 % (3.8-10.2); NEUT % 84.4 % (42.8-82.8); PLATELET COUNT 216 10^3/uL (134-434); RBC 2.56 M/mm3 (4.00-5.60); RDW 15.7 % (11.9-15.9); WHITE BLOOD COUNT 9.9 K/mm3 (4.0-10.0)
[2022-04-25 08:09] LABS: CALCIUM 7.5 mg/dL (8.5-10.1)
[2022-04-25 08:10] LABS: ALBUMIN 2.5 g/dl (3.4-5.0); BLOOD UREA NITROGEN 38.2 mg/dL (7-18); MAGNESIUM 1.9 mg/dL (1.8-2.4)
[2022-04-25 08:13] LABS: CREATININE 6.1 mg/dL (0.55-1.3)
[2022-04-25 08:15] LABS: BILIRUBIN,TOTAL 0.3 mg/dL (0.2-1)
[2022-04-25] MEDS: SEVELAMER CARBONATE 800 MG TAB (FP) PO SCH ×4 (08:43→17:39)
[2022-04-25] MEDS: CEFTRIAXONE 1 GM in DEXTROSE 5%-WATER - 50 ML IVPB SCH (09:03)
[2022-04-25] MEDS: FUROSEMIDE 40 MG/4 ML INJECTABLE VIAL IVPUSH SCH (09:04)
[2022-04-25] MEDS: hydrALAZINE HCL 50 MG TABLET (FP) PO SCH ×2 (09:04→21:54)
[2022-04-25] MEDS: methylPREDNISolone NA SUCC 40 MG/1 ML VIAL IVPUSH SCH (09:04)
[2022-04-25] MEDS: BUDESONIDE/FORMETEROL FUMARATE 160/4.5 mcg INHALER IH SCH ×2 (09:04→21:55)
[2022-04-25] MEDS: amLODIPine BESYLATE 5 MG TABLET (FP) PO SCH (09:04)
[2022-04-25] MEDS: AZITHROMYCIN IVPB 500 MG/250 ML BAG IVPB SCH (09:52)
[2022-04-25] MEDS ORDERED: EPOETIN ALFA-EPBX 10,000 UNIT/ML VIAL SQ ONE (20:03)
[2022-04-26] MEDS: HEPARIN NA (PORCINE) 5,000 UNITS/ML 1ML VIAL SQ SCH ×3 (06:41→22:40)
[2022-04-26] MEDS: INSULIN SLIDING SCALE (NOVOLOG) 1 VIAL SQ SCH ×3 (06:41→17:58)
[2022-04-26] MEDS: ALBUTEROL SO4 2.5/IPRATROPIUM 0.5 INH SOL 3 ML VIAL.NEB. NEB SCH ×4 (08:00→20:28)
[2022-04-26] MEDS ORDERED: EPOETIN ALFA-EPBX 10,000 UNIT/ML VIAL SQ ONE (08:00)
[2022-04-26] MEDS ORDERED: SODIUM CHLORIDE 250 ML IV PRN (08:50)
[2022-04-26] MEDS: SEVELAMER CARBONATE 800 MG TAB (FP) PO SCH ×3 (12:54→17:59)
[2022-04-26] MEDS: hydrALAZINE HCL 50 MG TABLET (FP) PO SCH (12:54)
[2022-04-26] MEDS: amLODIPine BESYLATE 5 MG TABLET (FP) PO SCH (12:54)
[2022-04-26] MEDS: FUROSEMIDE 40 MG/4 ML INJECTABLE VIAL IVPUSH SCH (12:55)
[2022-04-26] MEDS: CEFTRIAXONE 1 GM in DEXTROSE 5%-WATER - 50 ML IVPB SCH (12:55)
[2022-04-26] MEDS: BUDESONIDE/FORMETEROL FUMARATE 160/4.5 mcg INHALER IH SCH ×2 (12:55→22:05)
[2022-04-26] MEDS: methylPREDNISolone NA SUCC 40 MG/1 ML VIAL IVPUSH SCH (12:55)
[2022-04-26] MEDS: AZITHROMYCIN IVPB 500 MG/250 ML BAG IVPB SCH (13:39)
[2022-04-26 13:48] LABS: BASO % 0.2 % (0-2.0); EOS % 0.1 % (0-4.5); HEMATOCRIT 23.8 % (35.4-49); HEMOGLOBIN 7.7 GM/dL (11.7-16.9); LYMPH % 12.1 % (8-40); MCHC 32.6 g/dl (32.0-35.9); MEAN PLT VOLUME 7.9 fl (7.5-11.1); MONO % 8.7 % (3.8-10.2); NEUT % 78.9 % (42.8-82.8); PLATELET COUNT 232 10^3/uL (134-434); RBC 2.76 M/mm3 (4.00-5.60); WHITE BLOOD COUNT 8.7 K/mm3 (4.0-10.0)
[2022-04-26 18:45] LABS: CHLORIDE 61 mmol/L (98-107)
[2022-04-26 18:48] LABS: BLOOD UREA NITROGEN 16.9 mg/dL (7-18); CO2 20 mmol/L (21-32); MAGNESIUM 1.2 mg/dL (1.8-2.4)
[2022-04-26 18:51] LABS: CREATININE 3.2 mg/dL (0.55-1.3); SGOT/AST 18 U/L (15-37); SGPT/ALT 19 U/L (13-61)
[2022-04-26 18:53] LABS: BILIRUBIN,TOTAL 0.1 mg/dL (0.2-1)
[2022-04-26 18:54] LABS: ALK PHOS 44 U/L (45-117)
[2022-04-26 19:05] LABS: ALBUMIN 1.8 g/dl (3.4-5.0); ANION GAP 20 MMOL/L (8-16); CALCIUM 5.4 mg/dL (8.5-10.1); GLUCOSE,RANDOM 1538 mg/dL (74-106); SODIUM 101 mmol/L (136-145)
[2022-04-27] MEDS: hydrALAZINE HCL 50 MG TABLET (FP) PO SCH ×3 (00:26→21:56)
[2022-04-27] MEDS: INSULIN SLIDING SCALE (NOVOLOG) 1 VIAL SQ SCH ×5 (01:30→21:56)
[2022-04-27] MEDS: HEPARIN NA (PORCINE) 5,000 UNITS/ML 1ML VIAL SQ SCH ×3 (07:32→21:55)
[2022-04-27] MEDS: SEVELAMER CARBONATE 800 MG TAB (FP) PO SCH ×3 (08:46→16:51)
[2022-04-27] MEDS: FUROSEMIDE 40 MG/4 ML INJECTABLE VIAL IVPUSH SCH (09:21)
[2022-04-27] MEDS: methylPREDNISolone NA SUCC 40 MG/1 ML VIAL IVPUSH SCH (09:22)
[2022-04-27] MEDS: CEFTRIAXONE 1 GM in DEXTROSE 5%-WATER - 50 ML IVPB SCH (09:22)
[2022-04-27] MEDS: AZITHROMYCIN IVPB 500 MG/250 ML BAG IVPB SCH (09:22)
[2022-04-27] MEDS: amLODIPine BESYLATE 5 MG TABLET (FP) PO SCH (09:22)
[2022-04-27] MEDS: ALBUTEROL SO4 2.5/IPRATROPIUM 0.5 INH SOL 3 ML VIAL.NEB. NEB SCH ×4 (09:54→20:40)
[2022-04-27 12:28] LABS: BASO % 0.1 % (0-2.0); EOS % 0.1 % (0-4.5); HEMATOCRIT 25.6 % (35.4-49); HEMOGLOBIN 8.3 GM/dL (11.7-16.9); LYMPH % 8.2 % (8-40); MCH 28.4 pg (25.7-33.7); MCHC 32.4 g/dl (32.0-35.9); MEAN CELL VOLUME 87.6 fl (80-96); MEAN PLT VOLUME 8.1 fl (7.5-11.1); MONO % 6.3 % (3.8-10.2); NEUT % 85.3 % (42.8-82.8); PLATELET COUNT 231 10^3/uL (134-434); RBC 2.93 M/mm3 (4.00-5.60); RDW 16.3 % (11.9-15.9); WHITE BLOOD COUNT 11.1 K/mm3 (4.0-10.0)
[2022-04-27] MEDS: BUDESONIDE/FORMETEROL FUMARATE 160/4.5 mcg INHALER IH SCH ×2 (12:46→21:56)
[2022-04-27 13:07] LABS: CREATININE 5.5 mg/dL (0.55-1.3)
[2022-04-27 13:09] LABS: BILIRUBIN,TOTAL 0.2 mg/dL (0.2-1)
[2022-04-27 13:15] LABS: ALBUMIN 2.7 g/dl (3.4-5.0); BLOOD UREA NITROGEN 43.8 mg/dL (7-18); CALCIUM 7.4 mg/dL (8.5-10.1); TOT PROT 7.1 g/dl (6.4-8.2)
[2022-04-28] MEDS: HEPARIN NA (PORCINE) 5,000 UNITS/ML 1ML VIAL SQ SCH ×3 (06:22→22:02)
[2022-04-28] MEDS: INSULIN SLIDING SCALE (NOVOLOG) 1 VIAL SQ SCH ×4 (06:22→22:03)
[2022-04-28 07:39] LABS: BASO % 0.3 % (0-2.0); EOS % 0.2 % (0-4.5); HEMATOCRIT 25.9 % (35.4-49); HEMOGLOBIN 8.2 GM/dL (11.7-16.9); LYMPH % 10.7 % (8-40); MCH 27.8 pg (25.7-33.7); MCHC 31.8 g/dl (32.0-35.9); MEAN CELL VOLUME 87.5 fl (80-96); MEAN PLT VOLUME 8.5 fl (7.5-11.1); MONO % 10.2 % (3.8-10.2); NEUT % 78.6 % (42.8-82.8); PLATELET COUNT 255 10^3/uL (134-434); RBC 2.96 M/mm3 (4.00-5.60); RDW 16.4 % (11.9-15.9); WHITE BLOOD COUNT 13.5 K/mm3 (4.0-10.0)
[2022-04-28] MEDS: ALBUTEROL SO4 2.5/IPRATROPIUM 0.5 INH SOL 3 ML VIAL.NEB. NEB SCH ×4 (08:02→20:49)
[2022-04-28] MEDS: SEVELAMER CARBONATE 800 MG TAB (FP) PO SCH ×3 (09:49→18:34)
[2022-04-28] MEDS: CEFTRIAXONE 1 GM in DEXTROSE 5%-WATER - 50 ML IVPB SCH (09:51)
[2022-04-28] MEDS: FUROSEMIDE 40 MG/4 ML INJECTABLE VIAL IVPUSH SCH (09:51)
[2022-04-28] MEDS: methylPREDNISolone NA SUCC 40 MG/1 ML VIAL IVPUSH SCH (09:51)
[2022-04-28] MEDS: amLODIPine BESYLATE 5 MG TABLET (FP) PO SCH (09:51)
[2022-04-28] MEDS: BUDESONIDE/FORMETEROL FUMARATE 160/4.5 mcg INHALER IH SCH ×2 (09:51→22:03)
[2022-04-28] MEDS: hydrALAZINE HCL 50 MG TABLET (FP) PO SCH ×2 (09:51→22:03)
[2022-04-28 10:20] LABS: BLOOD UREA NITROGEN 66.4 mg/dL (7-18); CALCIUM 7.7 mg/dL (8.5-10.1)
[2022-04-28 10:23] LABS: CREATININE 7.4 mg/dL (0.55-1.3)
[2022-04-28 10:25] LABS: BILIRUBIN,TOTAL 0.3 mg/dL (0.2-1); TOT PROT 7.2 g/dl (6.4-8.2)
[2022-04-28] MEDS ORDERED: SODIUM CHLORIDE 250 ML IV PRN (13:58)
[2022-04-28] MEDS ORDERED: EPOETIN ALFA-EPBX 10,000 UNIT/ML VIAL IVPUSH ONE (15:00)
[2022-04-29] MEDS: HEPARIN NA (PORCINE) 5,000 UNITS/ML 1ML VIAL SQ SCH ×2 (06:59→17:11)
[2022-04-29] MEDS: INSULIN SLIDING SCALE (NOVOLOG) 1 VIAL SQ SCH ×3 (07:00→17:11)
[2022-04-29 07:20] LABS: HEMOGLOBIN 7.6 GM/dL (11.7-16.9); MCH 27.7 pg (25.7-33.7); MCHC 31.7 g/dl (32.0-35.9); MEAN CELL VOLUME 87.4 fl (80-96); MEAN PLT VOLUME 8.6 fl (7.5-11.1); PLATELET COUNT 209 10^3/uL (134-434); RBC 2.75 M/mm3 (4.00-5.60); RDW 16.3 % (11.9-15.9); WHITE BLOOD COUNT 13.1 K/mm3 (4.0-10.0)
[2022-04-29 07:25] VITALS: TEMP 90
[2022-04-29 07:35] LABS: ALBUMIN 2.5 g/dl (3.4-5.0); CALCIUM 7.1 mg/dL (8.5-10.1)
[2022-04-29 07:36] LABS: BLOOD UREA NITROGEN 48.2 mg/dL (7-18); MAGNESIUM 1.8 mg/dL (1.8-2.4)
[2022-04-29 07:39] LABS: CREATININE 5.1 mg/dL (0.55-1.3)
[2022-04-29 07:40] LABS: BILIRUBIN,TOTAL 0.2 mg/dL (0.2-1); TOT PROT 6.4 g/dl (6.4-8.2)
[2022-04-29] MEDS: ALBUTEROL SO4 2.5/IPRATROPIUM 0.5 INH SOL 3 ML VIAL.NEB. NEB SCH ×3 (08:55→12:50)
[2022-04-29] MEDS: SEVELAMER CARBONATE 800 MG TAB (FP) PO SCH ×2 (09:02→12:20)
[2022-04-29 09:49] LABS: ANISOCYTOSIS 2+; MACROCYTOSIS 0; PLATELET ESTIMATE INCREASED
[2022-04-29] MEDS ORDERED: methylPREDNISolone NA SUCC 40 MG/1 ML VIAL IVPUSH SCH (10:00)
[2022-04-29] MEDS: CEFTRIAXONE 1 GM in DEXTROSE 5%-WATER - 50 ML IVPB SCH (10:05)
[2022-04-29] MEDS: BUDESONIDE/FORMETEROL FUMARATE 160/4.5 mcg INHALER IH SCH (10:05)
[2022-04-29] MEDS: amLODIPine BESYLATE 5 MG TABLET (FP) PO SCH (10:05)
[2022-04-29] MEDS: hydrALAZINE HCL 50 MG TABLET (FP) PO SCH (10:05)
[2022-04-29] MEDS: FUROSEMIDE 40 MG/4 ML INJECTABLE VIAL IVPUSH SCH (10:05)
[2022-04-29 10:35] VITALS: RESP 18
[2022-04-29 15:30] VITALS: BP 153/88; PULSE 94
[2022-04-30] MEDS ORDERED: predniSONE 20 MG TABLET (UD) PO SCH (10:00)
== END 2022-04-29 18:07 | disposition home or self-care (01) | DRG 193 ==
LOC: JER 12:20 → JERBED 16:49 → J2W 04-23 00:07
PROVIDERS: ADMIT Internal Medicine; ATTEND Nurse Practitioner Family
PROC: 5A1D70Z Performance of Urinary Filtration, Intermittent, Less than 6 Hours Per Day (ICD-10-PCS; 2022-04-22)
PROC: 0HBRXZZ Excision of Toe Nail, External Approach (ICD-10-PCS; principal; 2022-04-29)
PROC: 0HBRXZZ Excision of Toe Nail, External Approach (ICD-10-PCS; 2022-04-29)
PROC: 0HBRXZZ Excision of Toe Nail, External Approach (ICD-10-PCS; 2022-04-29)
PROC: 0HBRXZZ Excision of Toe Nail, External Approach (ICD-10-PCS; 2022-04-29)
PROC: 0HBRXZZ Excision of Toe Nail, External Approach (ICD-10-PCS; 2022-04-29)
PROC: 0HBRXZZ Excision of Toe Nail, External Approach (ICD-10-PCS; 2022-04-29)
PROC: 0HBRXZZ Excision of Toe Nail, External Approach (ICD-10-PCS; 2022-04-29)
PROC: 0HBRXZZ Excision of Toe Nail, External Approach (ICD-10-PCS; 2022-04-29)
PROC: 0HBRXZZ Excision of Toe Nail, External Approach (ICD-10-PCS; 2022-04-29)
PROC: 0HBRXZZ Excision of Toe Nail, External Approach (ICD-10-PCS; 2022-04-29)
PROC: 0HBNXZZ Excision of Left Foot Skin, External Approach (ICD-10-PCS; 2022-04-29)
PROC: 0HBMXZZ Excision of Right Foot Skin, External Approach (ICD-10-PCS; 2022-04-29)
DX: J18.9 Pneumonia, unspecified organism (principal); J96.21 Acute and chronic respiratory failure with hypoxia; N18.6 End stage renal disease; I12.0 Hypertensive chronic kidney disease with stage 5 chronic kidney disease or end stage renal disease; J45.901 Unspecified asthma with (acute) exacerbation; E87.5 Hyperkalemia; Z99.2 Dependence on renal dialysis; E11.22 Type 2 diabetes mellitus with diabetic chronic kidney disease; E83.51 Hypocalcemia; Z86.73 Personal history of transient ischemic attack (TIA), and cerebral infarction without residual deficits; Z99.81 Dependence on supplemental oxygen; D63.1 Anemia in chronic kidney disease; E11.649 Type 2 diabetes mellitus with hypoglycemia without coma; L85.9 Epidermal thickening, unspecified; R59.0 Localized enlarged lymph nodes; E11.621 Type 2 diabetes mellitus with foot ulcer; L97.519 Non-pressure chronic ulcer of other part of right foot with unspecified severity; E11.65 Type 2 diabetes mellitus with hyperglycemia; B35.1 Tinea unguium
CPT/HCPCS: 0241U-QW; 36415; 71045-TC-FY; 80048; 80053; 82728; 82962; 83036; 83540; 83550; 83735; 83880; 84100; 85025; 85027; 86803; 87340; 93005; 93010; 93306-TC; 94640; 97116-GP; 97162-GP; 99285-25; J1644; Q5106

== ENCOUNTER 2023-05-20 10:01 | Inpatient (IN) | payer OTHER ==
[2023-05-20 10:45] VITALS: BMI 25.9
[2023-05-20 11:39] LABS: HEMATOCRIT 34.1 % (35.4-49); HEMOGLOBIN 11.1 GM/dL (11.7-16.9); MCH 29.1 pg (25.7-33.7); MCHC 32.4 g/dl (32.0-35.9); MEAN CELL VOLUME 89.6 fl (80-96); MEAN PLT VOLUME 8.9 fl (7.5-11.1); PLATELET COUNT 231 10^3/uL (134-434); RDW 16.2 % (11.9-15.9)
[2023-05-20 11:47] LABS: CHLORIDE 94 mmol/L (98-107); POTASSIUM 5.1 mmol/L (3.5-5.1); SODIUM 133 mmol/L (136-145); WHITE BLOOD COUNT 31.5 K/mm3 (4.0-10.0)
[2023-05-20 11:49] LABS: ANION GAP 14 mmol/L (4-13); BLOOD UREA NITROGEN 44.1 mg/dL (7-18); CALCIUM 9.6 mg/dL (8.5-10.1); CO2 25 mmol/L (21-32); GLUCOSE,RANDOM 110 mg/dL (74-106)
[2023-05-20 11:52] LABS: SGOT/AST 26 U/L (15-37); SGPT/ALT 19 U/L (13-61)
[2023-05-20] MEDS ORDERED: VANCOMYCIN 1,000 MG in DEXTROSE 5%-WATER - 250 ML IVPB ONE (11:53)
[2023-05-20 11:54] LABS: BILIRUBIN,TOTAL 0.5 mg/dL (0.2-1); TOT PROT 8.3 g/dl (6.4-8.2)
[2023-05-20] MEDS ORDERED: PIPERACILLIN/TAZOB 3.375 GM 3.375 GM in DEXTROSE 5%-WATER - 50 ML IVPB ONE (11:54)
[2023-05-20 11:55] LABS: ALK PHOS 125 U/L (45-117)
[2023-05-20 12:08] LABS: CREATININE 12.6 mg/dL (0.55-1.3)
[2023-05-20 12:43] LABS: ANISOCYTOSIS 0; MACROCYTOSIS 0
[2023-05-20] MEDS ORDERED: VANCOMYCIN 1 GRAM (PRE-DOCKED) 1,000 MG/250 ML BAG IVPB ONE (12:50)
[2023-05-20] MEDS ORDERED: PIPERACILLIN/TAZOB 3.375 GM 3.375 GM/50 ML BAG IVPB ONE (12:50)
[2023-05-20] MEDS ORDERED: ALBUTEROL SO4 2.5/IPRATROPIUM 0.5 INH SOL 3 ML VIAL.NEB. NEB ONE ×2 (13:30→13:47)
[2023-05-20] MEDS ORDERED: EPOETIN ALFA-EPBX 4,000 UNIT/ML VIAL SQ ONE (14:05)
[2023-05-20] MEDS ORDERED: SODIUM CHLORIDE 250 ML IV PRN (14:05)
[2023-05-20] MEDS ORDERED: ALBUTEROL SO4 HFA INHALER IH PRN (15:11)
[2023-05-20] MEDS: INSULIN ASPART SLIDING SCALE (NOVOLOG) 1 VIAL SQ SCH ×2 (18:54→23:42)
[2023-05-20] MEDS ORDERED: APIXABAN 5 MG TABLET ONE (22:56)
[2023-05-20] MEDS ORDERED: ATORVASTATIN CA 40 MG TABLET (FP) ONE (22:56)
[2023-05-20] MEDS: ATORVASTATIN CA 40 MG TABLET (FP) PO SCH (23:00)
[2023-05-20] MEDS: APIXABAN 5 MG TABLET PO SCH (23:00)
[2023-05-20] MEDS: BUDESONIDE/FORMETEROL FUMARATE 160/4.5 mcg INHALER IH SCH (23:01)
[2023-05-21] MEDS ORDERED: PIPERACILLIN/TAZOB 2.25 GM 2.25 GM in DEXTROSE 5%-WATER - 50 ML IVPB SCH (01:08)
[2023-05-21] MEDS: PIPERACILLIN/TAZOB 2.25 GM 2.25 GM in DEXTROSE 5%-WATER - 50 ML IVPB SCH ×3 (02:30→21:02)
[2023-05-21] MEDS ORDERED: PIPERACILLIN/TAZOB 2.25 GM 2.25 GM/50 ML BAG IVPB ONE ×2 (02:30→13:10)
[2023-05-21 08:25] LABS: HEMATOCRIT 29.1 % (35.4-49); HEMOGLOBIN 9.5 GM/dL (11.7-16.9); MCH 29.4 pg (25.7-33.7); MCHC 32.5 g/dl (32.0-35.9); MEAN CELL VOLUME 90.6 fl (80-96); MEAN PLT VOLUME 8.9 fl (7.5-11.1); PLATELET COUNT 191 10^3/uL (134-434); RBC 3.21 M/mm3 (4.00-5.60); RDW 15.5 % (11.9-15.9); WHITE BLOOD COUNT 25.4 K/mm3 (4.0-10.0)
[2023-05-21 08:39] LABS: CHLORIDE 101 mmol/L (98-107); POTASSIUM 4.5 mmol/L (3.5-5.1); SODIUM 138 mmol/L (136-145)
[2023-05-21 08:47] LABS: ANION GAP 10 mmol/L (4-13); CALCIUM 8.8 mg/dL (8.5-10.1); CO2 28 mmol/L (21-32); MAGNESIUM 1.8 mg/dL (1.8-2.4)
[2023-05-21] MEDS: INSULIN ASPART SLIDING SCALE (NOVOLOG) 1 VIAL SQ SCH ×4 (08:47→21:02)
[2023-05-21 08:49] LABS: SGOT/AST 19 U/L (15-37)
[2023-05-21 08:50] LABS: GLUCOSE,RANDOM 97 mg/dL (74-106)
[2023-05-21 08:51] LABS: BLOOD UREA NITROGEN 25.4 mg/dL (7-18)
[2023-05-21 08:53] LABS: SGPT/ALT 12 U/L (13-61)
[2023-05-21 08:54] LABS: CHOLESTEROL 113 mg/dL (50-200); LDL CHOLESTEROL (ONLY SJRH) 39 mg/dL (5-100)
[2023-05-21 08:55] LABS: TOT PROT 6.8 g/dl (6.4-8.2)
[2023-05-21 08:57] LABS: BILIRUBIN,TOTAL 0.8 mg/dL (0.2-1)
[2023-05-21 09:01] LABS: ALBUMIN 2.4 g/dl (3.4-5.0); ALK PHOS 93 U/L (45-117); CREATININE 8.1 mg/dL (0.55-1.3); HDL CHOLESTEROL 20 mg/dL (40-60)
[2023-05-21] MEDS: SEVELAMER CARBONATE 800 MG TAB (FP) PO SCH ×3 (09:23→17:47)
[2023-05-21] MEDS: PANTOPRAZOLE 40 MG TABLET PO SCH (09:23)
[2023-05-21] MEDS: APIXABAN 5 MG TABLET PO SCH (09:23)
[2023-05-21] MEDS: ASPIRIN 81 MG CHEWABLE TABLETS PO SCH (09:23)
[2023-05-21 09:59] LABS: ANISOCYTOSIS 0; MACROCYTOSIS 0
[2023-05-21] MEDS: BUDESONIDE/FORMETEROL FUMARATE 160/4.5 mcg INHALER IH SCH ×2 (11:57→21:04)
[2023-05-21] MEDS: ATORVASTATIN CA 40 MG TABLET (FP) PO SCH (21:02)
[2023-05-22] MEDS: PIPERACILLIN/TAZOB 2.25 GM 2.25 GM in DEXTROSE 5%-WATER - 50 ML IVPB SCH ×3 (03:17→17:33)
[2023-05-22] MEDS: INSULIN ASPART SLIDING SCALE (NOVOLOG) 1 VIAL SQ SCH ×4 (06:28→21:55)
[2023-05-22 07:16] LABS: HEMATOCRIT 26.3 % (35.4-49); HEMOGLOBIN 8.5 GM/dL (11.7-16.9); MCH 29.1 pg (25.7-33.7); MCHC 32.4 g/dl (32.0-35.9); MEAN CELL VOLUME 89.7 fl (80-96); MEAN PLT VOLUME 8.2 fl (7.5-11.1); PLATELET COUNT 197 10^3/uL (134-434); RBC 2.93 M/mm3 (4.00-5.60); RDW 15.5 % (11.9-15.9); WHITE BLOOD COUNT 22.5 K/mm3 (4.0-10.0)
[2023-05-22 07:28] LABS: CHLORIDE 97 mmol/L (98-107); POTASSIUM 4.4 mmol/L (3.5-5.1); SODIUM 133 mmol/L (136-145)
[2023-05-22 07:33] LABS: ANION GAP 10 mmol/L (4-13); BLOOD UREA NITROGEN 37.6 mg/dL (7-18); CALCIUM 8.3 mg/dL (8.5-10.1); CO2 26 mmol/L (21-32); GLUCOSE,RANDOM 96 mg/dL (74-106)
[2023-05-22 07:34] LABS: ALBUMIN 2.1 g/dl (3.4-5.0)
[2023-05-22 07:36] LABS: SGOT/AST 20 U/L (15-37); SGPT/ALT 12 U/L (13-61)
[2023-05-22 07:38] LABS: BILIRUBIN,TOTAL 0.8 mg/dL (0.2-1); TOT PROT 6.3 g/dl (6.4-8.2)
[2023-05-22 07:39] LABS: ALK PHOS 86 U/L (45-117)
[2023-05-22 07:42] LABS: CREATININE 9.9 mg/dL (0.55-1.3)
[2023-05-22] MEDS: SEVELAMER CARBONATE 800 MG TAB (FP) PO SCH ×3 (08:17→17:34)
[2023-05-22 08:56] LABS: ANISOCYTOSIS 0; MACROCYTOSIS 0
[2023-05-22] MEDS ORDERED: AMMONIUM LACTATE 12% LOTION 225 GM BOTTLE TP PRN (09:42)
[2023-05-22] MEDS: BUDESONIDE/FORMETEROL FUMARATE 160/4.5 mcg INHALER IH SCH ×2 (10:00→21:56)
[2023-05-22] MEDS ORDERED: SODIUM CHLORIDE 250 ML IV PRN (11:00)
[2023-05-22] MEDS ORDERED: EPOETIN ALFA-EPBX 4,000 UNIT/ML VIAL IVPUSH ONE (11:00)
[2023-05-22] MEDS: ASPIRIN 81 MG CHEWABLE TABLETS PO SCH (14:54)
[2023-05-22] MEDS: PANTOPRAZOLE 40 MG TABLET PO SCH (14:54)
[2023-05-22] MEDS: ATORVASTATIN CA 40 MG TABLET (FP) PO SCH (21:55)
[2023-05-23] MEDS: PIPERACILLIN/TAZOB 2.25 GM 2.25 GM in DEXTROSE 5%-WATER - 50 ML IVPB SCH ×3 (03:00→17:20)
[2023-05-23] MEDS: INSULIN ASPART SLIDING SCALE (NOVOLOG) 1 VIAL SQ SCH ×4 (06:02→22:20)
[2023-05-23 07:50] LABS: HEMOGLOBIN 9.1 GM/dL (11.7-16.9); MCHC 32.4 g/dl (32.0-35.9); MEAN CELL VOLUME 89.6 fl (80-96); MEAN PLT VOLUME 8.1 fl (7.5-11.1); PLATELET COUNT 219 10^3/uL (134-434); RBC 3.13 M/mm3 (4.00-5.60); RDW 15.9 % (11.9-15.9); WHITE BLOOD COUNT 16.9 K/mm3 (4.0-10.0)
[2023-05-23 08:10] LABS: POTASSIUM 3.9 mmol/L (3.5-5.1)
[2023-05-23 08:15] LABS: CALCIUM 8.3 mg/dL (8.5-10.1); MAGNESIUM 1.8 mg/dL (1.8-2.4)
[2023-05-23 08:16] LABS: BLOOD UREA NITROGEN 19.9 mg/dL (7-18)
[2023-05-23 08:18] LABS: CREATININE 6.7 mg/dL (0.55-1.3); PHOSPHOROUS 2.5 mg/dL (2.5-4.9)
[2023-05-23 08:20] LABS: BILIRUBIN,TOTAL 0.6 mg/dL (0.2-1); TOT PROT 6.7 g/dl (6.4-8.2)
[2023-05-23] MEDS: SEVELAMER CARBONATE 800 MG TAB (FP) PO SCH ×3 (08:20→17:20)
[2023-05-23] MEDS: ASPIRIN 81 MG CHEWABLE TABLETS PO SCH (10:01)
[2023-05-23] MEDS: PANTOPRAZOLE 40 MG TABLET PO SCH (10:01)
[2023-05-23] MEDS: BUDESONIDE/FORMETEROL FUMARATE 160/4.5 mcg INHALER IH SCH ×2 (10:04→22:21)
[2023-05-23] MEDS ORDERED: ACETAMINOPHEN 325 MG TABLET (FP) PO PRN (10:27)
[2023-05-23] MEDS: ATORVASTATIN CA 40 MG TABLET (FP) PO SCH (22:20)
[2023-05-24] MEDS: COLLAGENASE CLOSTRIDIUM HIST. 30 GRAMS TUBE TP SCH (01:45)
[2023-05-24] MEDS: PIPERACILLIN/TAZOB 2.25 GM 2.25 GM in DEXTROSE 5%-WATER - 50 ML IVPB SCH ×3 (02:54→17:48)
[2023-05-24] MEDS: INSULIN ASPART SLIDING SCALE (NOVOLOG) 1 VIAL SQ SCH ×4 (06:11→23:10)
[2023-05-24 07:25] LABS: HEMATOCRIT 27.7 % (35.4-49); HEMOGLOBIN 8.9 GM/dL (11.7-16.9); MCH 28.6 pg (25.7-33.7); MCHC 32.1 g/dl (32.0-35.9); MEAN CELL VOLUME 89.2 fl (80-96); MEAN PLT VOLUME 8.3 fl (7.5-11.1); PLATELET COUNT 243 10^3/uL (134-434); RBC 3.11 M/mm3 (4.00-5.60); RDW 15.3 % (11.9-15.9); WHITE BLOOD COUNT 19.6 K/mm3 (4.0-10.0)
[2023-05-24 07:41] LABS: CHLORIDE 95 mmol/L (98-107); SODIUM 129 mmol/L (136-145)
[2023-05-24 07:45] LABS: CALCIUM 7.5 mg/dL (8.5-10.1)
[2023-05-24 07:46] LABS: ALBUMIN 1.9 g/dl (3.4-5.0); ANION GAP 9 mmol/L (4-13); BLOOD UREA NITROGEN 29.8 mg/dL (7-18); CO2 25 mmol/L (21-32); GLUCOSE,RANDOM 103 mg/dL (74-106); MAGNESIUM 1.8 mg/dL (1.8-2.4)
[2023-05-24 07:49] LABS: PHOSPHOROUS 2.5 mg/dL (2.5-4.9); SGOT/AST 13 U/L (15-37); SGPT/ALT 10 U/L (13-61)
[2023-05-24 07:50] LABS: BILIRUBIN,TOTAL 0.5 mg/dL (0.2-1); TOT PROT 6.7 g/dl (6.4-8.2)
[2023-05-24 07:52] LABS: ALK PHOS 77 U/L (45-117)
[2023-05-24 08:01] LABS: CREATININE 9.1 mg/dL (0.55-1.3)
[2023-05-24] MEDS: SEVELAMER CARBONATE 800 MG TAB (FP) PO SCH ×3 (08:59→17:43)
[2023-05-24] MEDS: ASPIRIN 81 MG CHEWABLE TABLETS PO SCH (10:24)
[2023-05-24] MEDS: PANTOPRAZOLE 40 MG TABLET PO SCH (10:24)
[2023-05-24] MEDS: BUDESONIDE/FORMETEROL FUMARATE 160/4.5 mcg INHALER IH SCH ×2 (10:25→23:10)
[2023-05-24] MEDS: ATORVASTATIN CA 40 MG TABLET (FP) PO SCH (23:10)
[2023-05-25] MEDS: PIPERACILLIN/TAZOB 2.25 GM 2.25 GM in DEXTROSE 5%-WATER - 50 ML IVPB SCH ×3 (03:13→18:39)
[2023-05-25] MEDS: INSULIN ASPART SLIDING SCALE (NOVOLOG) 1 VIAL SQ SCH ×4 (06:01→22:07)
[2023-05-25] MEDS: SEVELAMER CARBONATE 800 MG TAB (FP) PO SCH ×3 (10:53→17:29)
[2023-05-25] MEDS: PANTOPRAZOLE 40 MG TABLET PO SCH (10:53)
[2023-05-25] MEDS: ASPIRIN 81 MG CHEWABLE TABLETS PO SCH (10:53)
[2023-05-25] MEDS: BUDESONIDE/FORMETEROL FUMARATE 160/4.5 mcg INHALER IH SCH ×2 (10:54→22:07)
[2023-05-25] MEDS: COLLAGENASE CLOSTRIDIUM HIST. 30 GRAMS TUBE TP SCH (11:00)
[2023-05-25] MEDS: ATORVASTATIN CA 40 MG TABLET (FP) PO SCH (22:07)
[2023-05-26] MEDS: PIPERACILLIN/TAZOB 2.25 GM 2.25 GM in DEXTROSE 5%-WATER - 50 ML IVPB SCH ×3 (01:26→17:20)
[2023-05-26] MEDS ORDERED: AMMONIUM LACTATE 12% LOTION 225 GM BOTTLE TP PRN (03:03)
[2023-05-26] MEDS ORDERED: ALBUTEROL SO4 HFA INHALER IH PRN (03:03)
[2023-05-26] MEDS: INSULIN ASPART SLIDING SCALE (NOVOLOG) 1 VIAL SQ SCH ×4 (06:09→22:35)
[2023-05-26] MEDS ORDERED: SODIUM CHLORIDE 250 ML IV PRN (09:30)
[2023-05-26 10:04] LABS: HEMATOCRIT 21.1 % (35.4-49); MCH 29.5 pg (25.7-33.7); MCHC 33.2 g/dl (32.0-35.9); MEAN CELL VOLUME 88.7 fl (80-96); MEAN PLT VOLUME 8.5 fl (7.5-11.1); PLATELET COUNT 189 10^3/uL (134-434); RBC 2.38 M/mm3 (4.00-5.60); RDW 15.5 % (11.9-15.9); WHITE BLOOD COUNT 11.2 K/mm3 (4.0-10.0)
[2023-05-26] MEDS: ASPIRIN 81 MG CHEWABLE TABLETS PO SCH (12:17)
[2023-05-26] MEDS: PANTOPRAZOLE 40 MG TABLET PO SCH (12:17)
[2023-05-26] MEDS: SEVELAMER CARBONATE 800 MG TAB (FP) PO SCH ×3 (12:17→17:20)
[2023-05-26] MEDS: BUDESONIDE/FORMETEROL FUMARATE 160/4.5 mcg INHALER IH SCH ×2 (12:31→21:57)
[2023-05-26] MEDS ORDERED: hydrALAZINE HCL 50 MG TABLET (FP) PO SCH (14:00)
[2023-05-26] MEDS ORDERED: ENALAPRIL MALEATE 10 MG TABLET PO SCH ×2 (14:45)
[2023-05-26] MEDS: NIFEdipine E.R 60 MG TABLET PO SCH ×3 (15:21→22:05)
[2023-05-26] MEDS: COLLAGENASE CLOSTRIDIUM HIST. 30 GRAMS TUBE TP SCH (15:22)
[2023-05-26 16:26] LABS: BASO % 0.4 % (0-2.0); EOS % 1.8 % (0-4.5); HEMATOCRIT 24.1 % (35.4-49); HEMOGLOBIN 7.7 GM/dL (11.7-16.9); LYMPH % 6.5 % (8-40); MCH 28.6 pg (25.7-33.7); MEAN CELL VOLUME 89.4 fl (80-96); MEAN PLT VOLUME 8.7 fl (7.5-11.1); MONO % 5.8 % (3.8-10.2); NEUT % 85.5 % (42.8-82.8); PLATELET COUNT 220 10^3/uL (134-434); RBC 2.69 M/mm3 (4.00-5.60); RDW 15.8 % (11.9-15.9); WHITE BLOOD COUNT 14.1 K/mm3 (4.0-10.0)
[2023-05-26 16:42] LABS: POTASSIUM 4.3 mmol/L (3.5-5.1); SODIUM 134 mmol/L (136-145)
[2023-05-26 17:20] LABS: CALCIUM 7.6 mg/dL (8.5-10.1); GLUCOSE,RANDOM 127 mg/dL (74-106)
[2023-05-26 17:22] LABS: ALBUMIN 1.9 g/dl (3.4-5.0); BLOOD UREA NITROGEN 34.4 mg/dL (7-18); CO2 25 mmol/L (21-32)
[2023-05-26 17:24] LABS: ALK PHOS 71 U/L (45-117); ANION GAP 13 mmol/L (4-13); BILIRUBIN,TOTAL 0.3 mg/dL (0.2-1); CHLORIDE 97 mmol/L (98-107); SGOT/AST 19 U/L (15-37); SGPT/ALT 13 U/L (13-61); TOT PROT 6.9 g/dl (6.4-8.2)
[2023-05-26] MEDS: hydrALAZINE HCL 25 MG TABLET (FP) PO SCH ×2 (21:38→22:02)
[2023-05-26] MEDS: ATORVASTATIN CA 40 MG TABLET (FP) PO SCH (21:38)
[2023-05-26] MEDS ORDERED: ISOSORBIDE MONONITRATE 30 MG TAB.SR.24H (FP) PO SCH (22:00)
[2023-05-27] MEDS: PIPERACILLIN/TAZOB 2.25 GM 2.25 GM in DEXTROSE 5%-WATER - 50 ML IVPB SCH ×2 (00:57→09:34)
[2023-05-27] MEDS: hydrALAZINE HCL 25 MG TABLET (FP) PO SCH (05:51)
[2023-05-27] MEDS: INSULIN ASPART SLIDING SCALE (NOVOLOG) 1 VIAL SQ SCH ×4 (06:25→21:36)
[2023-05-27] MEDS: SEVELAMER CARBONATE 800 MG TAB (FP) PO SCH ×3 (08:36→17:24)
[2023-05-27] MEDS: ASPIRIN 81 MG CHEWABLE TABLETS PO SCH (09:35)
[2023-05-27] MEDS: PANTOPRAZOLE 40 MG TABLET PO SCH (09:35)
[2023-05-27] MEDS: COLLAGENASE CLOSTRIDIUM HIST. 30 GRAMS TUBE TP SCH (09:35)
[2023-05-27] MEDS: BUDESONIDE/FORMETEROL FUMARATE 160/4.5 mcg INHALER IH SCH ×2 (09:36→21:38)
[2023-05-27 10:11] LABS: BASO % 0.5 % (0-2.0); EOS % 1.4 % (0-4.5); HEMOGLOBIN 7.7 GM/dL (11.7-16.9); LYMPH % 7.6 % (8-40); MCH 29.4 pg (25.7-33.7); MCHC 33.4 g/dl (32.0-35.9); MEAN CELL VOLUME 87.8 fl (80-96); MEAN PLT VOLUME 8.5 fl (7.5-11.1); MONO % 4.7 % (3.8-10.2); NEUT % 85.8 % (42.8-82.8); PLATELET COUNT 252 10^3/uL (134-434); RBC 2.62 M/mm3 (4.00-5.60); RDW 15.5 % (11.9-15.9); WHITE BLOOD COUNT 13.8 K/mm3 (4.0-10.0)
[2023-05-27 10:19] LABS: CHLORIDE 97 mmol/L (98-107); POTASSIUM 4.4 mmol/L (3.5-5.1); SODIUM 135 mmol/L (136-145)
[2023-05-27 10:22] LABS: ANION GAP 11 mmol/L (4-13); BLOOD UREA NITROGEN 40.4 mg/dL (7-18); CALCIUM 7.6 mg/dL (8.5-10.1); CO2 27 mmol/L (21-32); GLUCOSE,RANDOM 83 mg/dL (74-106)
[2023-05-27 10:25] LABS: PHOSPHOROUS 2.8 mg/dL (2.5-4.9); SGOT/AST 19 U/L (15-37); SGPT/ALT 14 U/L (13-61)
[2023-05-27 10:26] LABS: MAGNESIUM 1.8 mg/dL (1.8-2.4)
[2023-05-27 10:28] LABS: ALK PHOS 77 U/L (45-117); BILIRUBIN,TOTAL 0.6 mg/dL (0.2-1); TOT PROT 7.3 g/dl (6.4-8.2)
[2023-05-27 10:37] LABS: CREATININE 10.3 mg/dL (0.55-1.3)
[2023-05-27] MEDS: CEFAZOLIN 1 GM in DEXTROSE 5%-WATER - 50 ML IVPB SCH (12:23)
[2023-05-27] MEDS: ATORVASTATIN CA 40 MG TABLET (FP) PO SCH (21:33)
[2023-05-27] MEDS: APIXABAN 5 MG TABLET PO SCH (21:33)
[2023-05-28] MEDS ORDERED: HEPARIN NA (PORCINE) 5,000 UNITS/ML 1ML VIAL SQ ONE
[2023-05-28] MEDS ORDERED: LIDOCAINE HCL 1%, 10 MG/ML (50 mL VIAL) INF ONE ×2
[2023-05-28] MEDS: INSULIN ASPART SLIDING SCALE (NOVOLOG) 1 VIAL SQ SCH ×5 (06:15→21:10)
[2023-05-28] MEDS ORDERED: LIDOCAINE HCL 1%, 10 MG/ML (20ML VIAL) ONE (09:00)
[2023-05-28] MEDS ORDERED: HEPARIN NA (PORCINE) 5,000 UNITS/ML 1ML VIAL ONE (09:00)
[2023-05-28] MEDS: PANTOPRAZOLE 40 MG TABLET PO SCH (10:00)
[2023-05-28] MEDS: APIXABAN 5 MG TABLET PO SCH ×2 (10:00→21:02)
[2023-05-28] MEDS: SEVELAMER CARBONATE 800 MG TAB (FP) PO SCH ×3 (10:00→17:23)
[2023-05-28] MEDS: ASPIRIN 81 MG CHEWABLE TABLETS PO SCH (10:00)
[2023-05-28] MEDS: CEFAZOLIN 1 GM in DEXTROSE 5%-WATER - 50 ML IVPB SCH (10:00)
[2023-05-28] MEDS: COLLAGENASE CLOSTRIDIUM HIST. 30 GRAMS TUBE TP SCH (10:00)
[2023-05-28] MEDS: BUDESONIDE/FORMETEROL FUMARATE 160/4.5 mcg INHALER IH SCH ×2 (10:00→21:04)
[2023-05-28] MEDS ORDERED: ONDANSETRON 4 MG/2 ML VIAL IVPUSH PRN ×2 (10:05→11:00)
[2023-05-28] MEDS ORDERED: MIDAZOLAM HCL 2 MG/2 ML SINGLE DOSE VIAL ONE (10:09)
[2023-05-28] MEDS ORDERED: PROPOFOL 20 ML ONE (10:18)
[2023-05-28] MEDS ORDERED: ceFAZolin SODIUM 1 GM VIAL IVPB ONE (10:20)
[2023-05-28] MEDS ORDERED: ceFAZolin SODIUM 1 GM VIAL ONE (10:20)
[2023-05-28 10:25] LABS: HEMATOCRIT 22.5 % (35.4-49); HEMOGLOBIN 7.6 GM/dL (11.7-16.9); MCH 29.7 pg (25.7-33.7); MCHC 33.9 g/dl (32.0-35.9); MEAN CELL VOLUME 87.9 fl (80-96); MEAN PLT VOLUME 8.5 fl (7.5-11.1); PLATELET COUNT 250 10^3/uL (134-434); RBC 2.56 M/mm3 (4.00-5.60); RDW 15.4 % (11.9-15.9); WHITE BLOOD COUNT 15.2 K/mm3 (4.0-10.0)
[2023-05-28 10:26] LABS: INR 1.38 (0.83-1.09)
[2023-05-28 10:29] LABS: ACTIVATED PTT 37.5 SECONDS (25.2-36.5)
[2023-05-28 10:45] LABS: CHLORIDE 95 mmol/L (98-107); POTASSIUM 4.8 mmol/L (3.5-5.1); SODIUM 131 mmol/L (136-145)
[2023-05-28 10:52] LABS: ALBUMIN 1.8 g/dl (3.4-5.0); ANION GAP 12 mmol/L (4-13); CALCIUM 7.8 mg/dL (8.5-10.1); CO2 24 mmol/L (21-32)
[2023-05-28 10:55] LABS: GLUCOSE,RANDOM 77 mg/dL (74-106); SGPT/ALT 13 U/L (13-61)
[2023-05-28 10:56] LABS: SGOT/AST 14 U/L (15-37)
[2023-05-28 10:57] LABS: BILIRUBIN,TOTAL 0.4 mg/dL (0.2-1); TOT PROT 7.2 g/dl (6.4-8.2)
[2023-05-28 10:59] LABS: ALK PHOS 76 U/L (45-117)
[2023-05-28] MEDS ORDERED: AMMONIUM LACTATE 12% LOTION 225 GM BOTTLE TP PRN (11:00)
[2023-05-28] MEDS ORDERED: ACETAMINOPHEN 325 MG TABLET (FP) PO PRN (11:00)
[2023-05-28] MEDS ORDERED: ALBUTEROL SO4 HFA INHALER IH PRN (11:00)
[2023-05-28 11:04] LABS: CREATININE 12.2 mg/dL (0.55-1.3)
[2023-05-28] MEDS: hydrALAZINE HCL 25 MG TABLET (FP) PO SCH ×2 (15:33→21:02)
[2023-05-28] MEDS: ATORVASTATIN CA 40 MG TABLET (FP) PO SCH (21:01)
[2023-05-28] MEDS: NIFEdipine E.R 60 MG TABLET PO SCH (21:01)
[2023-05-29] MEDS: hydrALAZINE HCL 25 MG TABLET (FP) PO SCH ×3 (05:02→22:13)
[2023-05-29] MEDS: INSULIN ASPART SLIDING SCALE (NOVOLOG) 1 VIAL SQ SCH ×4 (06:27→22:16)
[2023-05-29] MEDS: SEVELAMER CARBONATE 800 MG TAB (FP) PO SCH ×3 (08:46→17:44)
[2023-05-29 08:49] LABS: HEMOGLOBIN 7.2 GM/dL (11.7-16.9); MCH 28.5 pg (25.7-33.7); MCHC 32.7 g/dl (32.0-35.9); MEAN CELL VOLUME 87.2 fl (80-96); MEAN PLT VOLUME 8.4 fl (7.5-11.1); PLATELET COUNT 230 10^3/uL (134-434); RBC 2.52 M/mm3 (4.00-5.60); RDW 15.5 % (11.9-15.9)
[2023-05-29 09:10] LABS: CHLORIDE 95 mmol/L (98-107); POTASSIUM 4.2 mmol/L (3.5-5.1); SODIUM 129 mmol/L (136-145)
[2023-05-29 09:12] LABS: ANION GAP 12 mmol/L (4-13); CALCIUM 8.2 mg/dL (8.5-10.1); CO2 23 mmol/L (21-32); MAGNESIUM 1.9 mg/dL (1.8-2.4)
[2023-05-29 09:15] LABS: PHOSPHOROUS 3.5 mg/dL (2.5-4.9)
[2023-05-29 09:16] LABS: GLUCOSE,RANDOM 119 mg/dL (74-106)
[2023-05-29] MEDS ORDERED: EPOETIN ALFA-EPBX 10,000 UNIT/ML VIAL IVPUSH ONE (10:00)
[2023-05-29] MEDS ORDERED: SODIUM CHLORIDE 250 ML IV PRN (10:00)
[2023-05-29] MEDS: PANTOPRAZOLE 40 MG TABLET PO SCH (13:18)
[2023-05-29] MEDS: APIXABAN 5 MG TABLET PO SCH ×2 (13:18→22:13)
[2023-05-29] MEDS: ASPIRIN 81 MG CHEWABLE TABLETS PO SCH (13:18)
[2023-05-29] MEDS: BUDESONIDE/FORMETEROL FUMARATE 160/4.5 mcg INHALER IH SCH ×2 (13:19→22:17)
[2023-05-29] MEDS: CEFAZOLIN 1 GM in DEXTROSE 5%-WATER - 50 ML IVPB SCH (13:19)
[2023-05-29] MEDS: NIFEdipine E.R 60 MG TABLET PO SCH ×2 (13:43→22:13)
[2023-05-29] MEDS: COLLAGENASE CLOSTRIDIUM HIST. 30 GRAMS TUBE TP SCH (17:06)
[2023-05-29] MEDS: ATORVASTATIN CA 40 MG TABLET (FP) PO SCH (22:13)
[2023-05-30] MEDS: hydrALAZINE HCL 25 MG TABLET (FP) PO SCH ×4 (07:00→22:32)
[2023-05-30] MEDS: INSULIN ASPART SLIDING SCALE (NOVOLOG) 1 VIAL SQ SCH ×4 (07:14→22:32)
[2023-05-30] MEDS: SEVELAMER CARBONATE 800 MG TAB (FP) PO SCH ×3 (08:56→16:57)
[2023-05-30] MEDS: ASPIRIN 81 MG CHEWABLE TABLETS PO SCH (09:00)
[2023-05-30] MEDS: APIXABAN 5 MG TABLET PO SCH ×2 (09:00→22:31)
[2023-05-30] MEDS: CEFAZOLIN 1 GM in DEXTROSE 5%-WATER - 50 ML IVPB SCH (09:00)
[2023-05-30] MEDS: PANTOPRAZOLE 40 MG TABLET PO SCH (09:00)
[2023-05-30] MEDS: COLLAGENASE CLOSTRIDIUM HIST. 30 GRAMS TUBE TP SCH (09:02)
[2023-05-30 10:12] LABS: HEMATOCRIT 22.2 % (35.4-49); HEMOGLOBIN 7.2 GM/dL (11.7-16.9); MCH 28.4 pg (25.7-33.7); MCHC 32.4 g/dl (32.0-35.9); MEAN CELL VOLUME 87.7 fl (80-96); MEAN PLT VOLUME 8.7 fl (7.5-11.1); PLATELET COUNT 296 10^3/uL (134-434); RBC 2.54 M/mm3 (4.00-5.60); RDW 15.9 % (11.9-15.9); WHITE BLOOD COUNT 13.2 K/mm3 (4.0-10.0)
[2023-05-30] MEDS: BUDESONIDE/FORMETEROL FUMARATE 160/4.5 mcg INHALER IH SCH ×2 (10:28→22:34)
[2023-05-30] MEDS: NIFEdipine E.R 60 MG TABLET PO SCH ×2 (10:29→22:31)
[2023-05-30 10:35] LABS: CHLORIDE 96 mmol/L (98-107); POTASSIUM 4.4 mmol/L (3.5-5.1); SODIUM 131 mmol/L (136-145)
[2023-05-30 10:37] LABS: ANION GAP 10 mmol/L (4-13); CO2 25 mmol/L (21-32)
[2023-05-30 10:38] LABS: GLUCOSE,RANDOM 165 mg/dL (74-106)
[2023-05-30 10:44] LABS: BLOOD UREA NITROGEN 32.9 mg/dL (7-18)
[2023-05-30] MEDS: ATORVASTATIN CA 40 MG TABLET (FP) PO SCH (22:31)
[2023-05-30] MEDS: ISOSORBIDE MONONITRATE 30 MG TAB.SR.24H (FP) PO SCH (22:31)
[2023-05-31] MEDS: hydrALAZINE HCL 25 MG TABLET (FP) PO SCH ×3 (05:31→21:33)
[2023-05-31] MEDS: INSULIN ASPART SLIDING SCALE (NOVOLOG) 1 VIAL SQ SCH ×4 (06:23→21:41)
[2023-05-31] MEDS: ISOSORBIDE MONONITRATE 30 MG TAB.SR.24H (FP) PO SCH ×2 (09:20→21:33)
[2023-05-31] MEDS: SEVELAMER CARBONATE 800 MG TAB (FP) PO SCH ×3 (09:20→16:51)
[2023-05-31] MEDS: APIXABAN 5 MG TABLET PO SCH ×2 (09:20→21:40)
[2023-05-31] MEDS: ASPIRIN 81 MG CHEWABLE TABLETS PO SCH (09:20)
[2023-05-31] MEDS: NIFEdipine E.R 60 MG TABLET PO SCH ×2 (09:20→21:33)
[2023-05-31] MEDS: CEFAZOLIN 1 GM in DEXTROSE 5%-WATER - 50 ML IVPB SCH (09:21)
[2023-05-31] MEDS: ENALAPRIL MALEATE 10 MG TABLET PO SCH (09:21)
[2023-05-31] MEDS: PANTOPRAZOLE 40 MG TABLET PO SCH (09:21)
[2023-05-31] MEDS: BUDESONIDE/FORMETEROL FUMARATE 160/4.5 mcg INHALER IH SCH ×2 (09:24→21:40)
[2023-05-31] MEDS: COLLAGENASE CLOSTRIDIUM HIST. 30 GRAMS TUBE TP SCH (09:29)
[2023-05-31 10:21] LABS: BASO % 0.7 % (0-2.0); EOS % 2.9 % (0-4.5); HEMATOCRIT 21.3 % (35.4-49); HEMOGLOBIN 7.1 GM/dL (11.7-16.9); MCH 29.4 pg (25.7-33.7); MCHC 33.3 g/dl (32.0-35.9); MEAN CELL VOLUME 88.2 fl (80-96); MEAN PLT VOLUME 8.3 fl (7.5-11.1); MONO % 3.3 % (3.8-10.2); NEUT % 83.1 % (42.8-82.8); PLATELET COUNT 304 10^3/uL (134-434); RBC 2.41 M/mm3 (4.00-5.60); RDW 15.6 % (11.9-15.9); WHITE BLOOD COUNT 11.3 K/mm3 (4.0-10.0)
[2023-05-31 10:28] LABS: CHLORIDE 97 mmol/L (98-107); POTASSIUM 4.2 mmol/L (3.5-5.1); SODIUM 134 mmol/L (136-145)
[2023-05-31 10:32] LABS: ANION GAP 12 mmol/L (4-13); BLOOD UREA NITROGEN 41.3 mg/dL (7-18); CO2 24 mmol/L (21-32); GLUCOSE,RANDOM 151 mg/dL (74-106)
[2023-05-31 10:35] LABS: SGOT/AST 16 U/L (15-37); SGPT/ALT < 6 U/L (13-61)
[2023-05-31 10:36] LABS: BILIRUBIN,TOTAL 0.2 mg/dL (0.2-1)
[2023-05-31 10:37] LABS: TOT PROT 7.6 g/dl (6.4-8.2)
[2023-05-31 10:38] LABS: ALK PHOS 80 U/L (45-117)
[2023-05-31 10:39] LABS: CREATININE 10.1 mg/dL (0.55-1.3)
[2023-05-31] MEDS: ATORVASTATIN CA 40 MG TABLET (FP) PO SCH (21:33)
[2023-06-01] MEDS: hydrALAZINE HCL 25 MG TABLET (FP) PO SCH ×3 (05:39→21:42)
[2023-06-01] MEDS: INSULIN ASPART SLIDING SCALE (NOVOLOG) 1 VIAL SQ SCH ×4 (06:05→21:42)
[2023-06-01] MEDS ORDERED: SODIUM CHLORIDE 250 ML IV PRN (07:43)
[2023-06-01] MEDS: SEVELAMER CARBONATE 800 MG TAB (FP) PO SCH ×3 (07:59→17:50)
[2023-06-01] MEDS ORDERED: EPOETIN ALFA-EPBX 4,000 UNIT/ML VIAL SQ ONE (08:00)
[2023-06-01 12:15] LABS: BASO % 0.8 % (0-2.0); EOS % 2.6 % (0-4.5); HEMATOCRIT 19.7 % (35.4-49); LYMPH % 9.7 % (8-40); MCHC 33.2 g/dl (32.0-35.9); MEAN CELL VOLUME 87.3 fl (80-96); MEAN PLT VOLUME 7.6 fl (7.5-11.1); MONO % 3.8 % (3.8-10.2); NEUT % 83.1 % (42.8-82.8); PLATELET COUNT 284 10^3/uL (134-434); RBC 2.26 M/mm3 (4.00-5.60); RDW 15.4 % (11.9-15.9)
[2023-06-01] MEDS: ASPIRIN 81 MG CHEWABLE TABLETS PO SCH (12:17)
[2023-06-01] MEDS: NIFEdipine E.R 60 MG TABLET PO SCH ×2 (12:17→21:42)
[2023-06-01] MEDS: PANTOPRAZOLE 40 MG TABLET PO SCH (12:17)
[2023-06-01] MEDS: APIXABAN 5 MG TABLET PO SCH ×2 (12:17→21:42)
[2023-06-01] MEDS: ISOSORBIDE MONONITRATE 30 MG TAB.SR.24H (FP) PO SCH (12:17)
[2023-06-01] MEDS: CEFAZOLIN 1 GM in DEXTROSE 5%-WATER - 50 ML IVPB SCH (12:18)
[2023-06-01] MEDS: COLLAGENASE CLOSTRIDIUM HIST. 30 GRAMS TUBE TP SCH (12:19)
[2023-06-01] MEDS: BUDESONIDE/FORMETEROL FUMARATE 160/4.5 mcg INHALER IH SCH ×2 (12:19→21:42)
[2023-06-01 12:24] LABS: HEMOGLOBIN 6.5 GM/dL (11.7-16.9)
[2023-06-01 12:34] LABS: SICKLE CELL SCREEN NEGATIVE (NEGATIVE)
[2023-06-01] MEDS: ENALAPRIL MALEATE 10 MG TABLET PO SCH (13:14)
[2023-06-01] MEDS: ATORVASTATIN CA 40 MG TABLET (FP) PO SCH (21:42)
[2023-06-02] MEDS: INSULIN ASPART SLIDING SCALE (NOVOLOG) 1 VIAL SQ SCH ×3 (06:18→16:42)
[2023-06-02] MEDS: hydrALAZINE HCL 25 MG TABLET (FP) PO SCH ×3 (06:18→22:37)
[2023-06-02] MEDS: SEVELAMER CARBONATE 800 MG TAB (FP) PO SCH ×3 (09:06→18:01)
[2023-06-02] MEDS: ASPIRIN 81 MG CHEWABLE TABLETS PO SCH (09:06)
[2023-06-02] MEDS: PANTOPRAZOLE 40 MG TABLET PO SCH (09:06)
[2023-06-02] MEDS: CEFAZOLIN 1 GM in DEXTROSE 5%-WATER - 50 ML IVPB SCH (09:06)
[2023-06-02] MEDS: APIXABAN 5 MG TABLET PO SCH ×2 (09:06→22:37)
[2023-06-02] MEDS: NIFEdipine E.R 60 MG TABLET PO SCH ×2 (09:06→22:37)
[2023-06-02] MEDS: BUDESONIDE/FORMETEROL FUMARATE 160/4.5 mcg INHALER IH SCH ×2 (09:14→22:38)
[2023-06-02] MEDS: COLLAGENASE CLOSTRIDIUM HIST. 30 GRAMS TUBE TP SCH (09:14)
[2023-06-02 10:28] LABS: HEMOGLOBIN 7.6 GM/dL (11.7-16.9); MCH 28.4 pg (25.7-33.7); MCHC 32.9 g/dl (32.0-35.9); MEAN CELL VOLUME 86.2 fl (80-96); MEAN PLT VOLUME 7.9 fl (7.5-11.1); PLATELET COUNT 302 10^3/uL (134-434); RBC 2.67 M/mm3 (4.00-5.60); RDW 15.8 % (11.9-15.9)
[2023-06-02] MEDS: predniSONE 20 MG TABLET (UD) PO SCH (10:29)
[2023-06-02 11:04] LABS: BLOOD UREA NITROGEN 26.3 mg/dL (7-18); CALCIUM 8.2 mg/dL (8.5-10.1)
[2023-06-02 11:07] LABS: CREATININE 6.8 mg/dL (0.55-1.3)
[2023-06-02] MEDS ORDERED: SODIUM CHLORIDE 250 ML IV PRN (19:19)
[2023-06-02] MEDS: ATORVASTATIN CA 40 MG TABLET (FP) PO SCH (22:37)
[2023-06-03] MEDS: INSULIN ASPART SLIDING SCALE (NOVOLOG) 1 VIAL SQ SCH ×5 (00:03→21:18)
[2023-06-03] MEDS: hydrALAZINE HCL 25 MG TABLET (FP) PO SCH ×3 (05:13→21:17)
[2023-06-03] MEDS: SEVELAMER CARBONATE 800 MG TAB (FP) PO SCH ×3 (08:20→17:42)
[2023-06-03 09:21] LABS: HEMATOCRIT 20.1 % (35.4-49); MCH 29.2 pg (25.7-33.7); MEAN PLT VOLUME 7.7 fl (7.5-11.1); PLATELET COUNT 272 10^3/uL (134-434); RBC 2.34 M/mm3 (4.00-5.60); RDW 15.8 % (11.9-15.9); WHITE BLOOD COUNT 8.4 K/mm3 (4.0-10.0)
[2023-06-03 09:27] LABS: HEMOGLOBIN 6.8 GM/dL (11.7-16.9)
[2023-06-03 09:42] LABS: CHLORIDE 97 mmol/L (98-107); SODIUM 135 mmol/L (136-145)
[2023-06-03 09:44] LABS: ANION GAP 11 mmol/L (4-13); CALCIUM 8.1 mg/dL (8.5-10.1); CO2 27 mmol/L (21-32)
[2023-06-03 09:45] LABS: BLOOD UREA NITROGEN 42.5 mg/dL (7-18); GLUCOSE,RANDOM 152 mg/dL (74-106)
[2023-06-03] MEDS ORDERED: EPOETIN ALFA-EPBX 10,000 UNIT/ML VIAL IVPUSH ONE (09:45)
[2023-06-03 10:06] LABS: CREATININE 8.4 mg/dL (0.55-1.3)
[2023-06-03] MEDS: CEFAZOLIN 1 GM in DEXTROSE 5%-WATER - 50 ML IVPB SCH (13:00)
[2023-06-03] MEDS: PANTOPRAZOLE 40 MG TABLET PO SCH (13:01)
[2023-06-03] MEDS: APIXABAN 5 MG TABLET PO SCH (13:02)
[2023-06-03] MEDS: predniSONE 20 MG TABLET (UD) PO SCH (13:02)
[2023-06-03] MEDS: ASPIRIN 81 MG CHEWABLE TABLETS PO SCH (13:02)
[2023-06-03] MEDS: NIFEdipine E.R 60 MG TABLET PO SCH ×2 (13:03→21:17)
[2023-06-03] MEDS: BUDESONIDE/FORMETEROL FUMARATE 160/4.5 mcg INHALER IH SCH ×2 (13:18→21:19)
[2023-06-03] MEDS: COLLAGENASE CLOSTRIDIUM HIST. 30 GRAMS TUBE TP SCH (13:19)
[2023-06-03] MEDS: ATORVASTATIN CA 40 MG TABLET (FP) PO SCH (21:18)
[2023-06-04] MEDS: hydrALAZINE HCL 25 MG TABLET (FP) PO SCH ×3 (06:53→21:44)
[2023-06-04] MEDS: INSULIN ASPART SLIDING SCALE (NOVOLOG) 1 VIAL SQ SCH ×4 (07:30→21:44)
[2023-06-04] MEDS: CEFAZOLIN 1 GM in DEXTROSE 5%-WATER - 50 ML IVPB SCH (10:06)
[2023-06-04] MEDS: SEVELAMER CARBONATE 800 MG TAB (FP) PO SCH ×3 (10:06→17:33)
[2023-06-04] MEDS: predniSONE 20 MG TABLET (UD) PO SCH (10:06)
[2023-06-04] MEDS: NIFEdipine E.R 60 MG TABLET PO SCH ×2 (10:06→21:44)
[2023-06-04] MEDS: ASPIRIN 81 MG CHEWABLE TABLETS PO SCH (10:07)
[2023-06-04] MEDS: PANTOPRAZOLE 40 MG TABLET PO SCH (10:07)
[2023-06-04] MEDS: BUDESONIDE/FORMETEROL FUMARATE 160/4.5 mcg INHALER IH SCH ×2 (10:30→21:46)
[2023-06-04 11:39] LABS: HEMATOCRIT 25.5 % (35.4-49); HEMOGLOBIN 8.7 GM/dL (11.7-16.9); MCH 29.6 pg (25.7-33.7); MCHC 34.2 g/dl (32.0-35.9); MEAN CELL VOLUME 86.5 fl (80-96); MEAN PLT VOLUME 7.9 fl (7.5-11.1); PLATELET COUNT 313 10^3/uL (134-434); RBC 2.95 M/mm3 (4.00-5.60); RDW 15.4 % (11.9-15.9); WHITE BLOOD COUNT 9.1 K/mm3 (4.0-10.0)
[2023-06-04 12:17] LABS: POTASSIUM 3.9 mmol/L (3.5-5.1)
[2023-06-04 12:19] LABS: INR 1.27 (0.83-1.09); PROTHROMBIN TIME (PATIENT) 14.7 SEC (9.7-13.0)
[2023-06-04 12:20] LABS: ACTIVATED PTT 37.6 SECONDS (25.2-36.5)
[2023-06-04 12:28] LABS: BLOOD UREA NITROGEN 27.3 mg/dL (7-18)
[2023-06-04 12:31] LABS: CREATININE 5.7 mg/dL (0.55-1.3)
[2023-06-04] MEDS ORDERED: predniSONE 20 MG TABLET (UD) PO SCH (15:19)
[2023-06-04] MEDS: COLLAGENASE CLOSTRIDIUM HIST. 30 GRAMS TUBE TP SCH (20:05)
[2023-06-04] MEDS: ENALAPRIL MALEATE 5 MG TABLET PO SCH (21:44)
[2023-06-04] MEDS: APIXABAN 5 MG TABLET PO SCH (21:44)
[2023-06-04] MEDS: ATORVASTATIN CA 40 MG TABLET (FP) PO SCH (21:44)
[2023-06-05] MEDS: hydrALAZINE HCL 25 MG TABLET (FP) PO SCH ×3 (05:55→21:28)
[2023-06-05] MEDS: INSULIN ASPART SLIDING SCALE (NOVOLOG) 1 VIAL SQ SCH ×4 (06:01→21:42)
[2023-06-05] MEDS ORDERED: SODIUM CHLORIDE 250 ML IV PRN (07:53)
[2023-06-05] MEDS ORDERED: EPOETIN ALFA-EPBX 10,000 UNIT/ML VIAL IVPUSH ONE (08:30)
[2023-06-05 09:09] LABS: BASO % 0.6 % (0-2.0); EOS % 0.6 % (0-4.5); HEMATOCRIT 25.9 % (35.4-49); HEMOGLOBIN 8.6 GM/dL (11.7-16.9); LYMPH % 11.4 % (8-40); MCHC 33.1 g/dl (32.0-35.9); MEAN CELL VOLUME 87.4 fl (80-96); MEAN PLT VOLUME 8.8 fl (7.5-11.1); MONO % 4.6 % (3.8-10.2); NEUT % 82.8 % (42.8-82.8); PLATELET COUNT 316 10^3/uL (134-434); RBC 2.96 M/mm3 (4.00-5.60); RDW 15.9 % (11.9-15.9); WHITE BLOOD COUNT 11.5 K/mm3 (4.0-10.0)
[2023-06-05 09:23] LABS: POTASSIUM 4.4 mmol/L (3.5-5.1)
[2023-06-05] MEDS: COLLAGENASE CLOSTRIDIUM HIST. 30 GRAMS TUBE TP SCH (09:30)
[2023-06-05] MEDS: SEVELAMER CARBONATE 800 MG TAB (FP) PO SCH ×3 (09:33→17:22)
[2023-06-05 09:48] LABS: CREATININE 7.4 mg/dL (0.55-1.3)
[2023-06-05 09:49] LABS: BILIRUBIN,TOTAL 0.3 mg/dL (0.2-1); BLOOD UREA NITROGEN 42.9 mg/dL (7-18)
[2023-06-05 09:50] LABS: TOT PROT 8.3 g/dl (6.4-8.2)
[2023-06-05] MEDS ORDERED: predniSONE 20 MG TABLET (UD) PO SCH (10:00)
[2023-06-05 10:14] LABS: ALBUMIN 2.5 g/dl (3.4-5.0)
[2023-06-05] MEDS: NIFEdipine E.R 60 MG TABLET PO SCH ×2 (11:17→21:28)
[2023-06-05] MEDS: PANTOPRAZOLE 40 MG TABLET PO SCH (11:18)
[2023-06-05] MEDS: ASPIRIN 81 MG CHEWABLE TABLETS PO SCH (11:18)
[2023-06-05] MEDS: BUDESONIDE/FORMETEROL FUMARATE 160/4.5 mcg INHALER IH SCH (11:18)
[2023-06-05] MEDS: ENALAPRIL MALEATE 5 MG TABLET PO SCH (13:31)
[2023-06-05] MEDS: ATORVASTATIN CA 40 MG TABLET (FP) PO SCH (21:27)
[2023-06-06] MEDS: ENALAPRIL MALEATE 5 MG TABLET PO SCH ×3 (01:22→22:47)
[2023-06-06] MEDS: BUDESONIDE/FORMETEROL FUMARATE 160/4.5 mcg INHALER IH SCH ×3 (01:23→21:25)
[2023-06-06] MEDS: INSULIN ASPART SLIDING SCALE (NOVOLOG) 1 VIAL SQ SCH ×4 (06:00→21:24)
[2023-06-06] MEDS: hydrALAZINE HCL 25 MG TABLET (FP) PO SCH ×3 (06:00→21:20)
[2023-06-06] MEDS: SEVELAMER CARBONATE 800 MG TAB (FP) PO SCH ×3 (08:09→16:53)
[2023-06-06] MEDS: NIFEdipine E.R 60 MG TABLET PO SCH ×2 (09:09→21:20)
[2023-06-06] MEDS: PANTOPRAZOLE 40 MG TABLET PO SCH (09:09)
[2023-06-06] MEDS: ASPIRIN 81 MG CHEWABLE TABLETS PO SCH (09:10)
[2023-06-06] MEDS: COLLAGENASE CLOSTRIDIUM HIST. 30 GRAMS TUBE TP SCH (09:10)
[2023-06-06] MEDS ORDERED: predniSONE 10 MG TABLET (UD) PO SCH (10:00)
[2023-06-06 10:48] LABS: BASO % 0.9 % (0-2.0); EOS % 0.7 % (0-4.5); HEMOGLOBIN 8.7 GM/dL (11.7-16.9); LYMPH % 13.5 % (8-40); MCH 29.3 pg (25.7-33.7); MCHC 33.5 g/dl (32.0-35.9); MEAN CELL VOLUME 87.5 fl (80-96); MEAN PLT VOLUME 7.9 fl (7.5-11.1); MONO % 6.8 % (3.8-10.2); NEUT % 78.1 % (42.8-82.8); PLATELET COUNT 346 10^3/uL (134-434); RBC 2.98 M/mm3 (4.00-5.60); RDW 15.7 % (11.9-15.9); WHITE BLOOD COUNT 12.6 K/mm3 (4.0-10.0)
[2023-06-06 10:55] LABS: POTASSIUM 4.1 mmol/L (3.5-5.1)
[2023-06-06 10:59] LABS: CALCIUM 7.7 mg/dL (8.5-10.1)
[2023-06-06 11:00] LABS: ALBUMIN 2.4 g/dl (3.4-5.0); BLOOD UREA NITROGEN 29.6 mg/dL (7-18)
[2023-06-06 11:03] LABS: CREATININE 5.1 mg/dL (0.55-1.3)
[2023-06-06 11:05] LABS: BILIRUBIN,TOTAL 0.4 mg/dL (0.2-1); TOT PROT 7.9 g/dl (6.4-8.2)
[2023-06-06] MEDS: ATORVASTATIN CA 40 MG TABLET (FP) PO SCH (21:20)
[2023-06-07] MEDS: hydrALAZINE HCL 25 MG TABLET (FP) PO SCH ×3 (06:08→22:31)
[2023-06-07] MEDS: INSULIN ASPART SLIDING SCALE (NOVOLOG) 1 VIAL SQ SCH ×4 (06:08→22:31)
[2023-06-07] MEDS: SEVELAMER CARBONATE 800 MG TAB (FP) PO SCH ×3 (07:54→16:34)
[2023-06-07] MEDS: ASPIRIN 81 MG CHEWABLE TABLETS PO SCH (09:10)
[2023-06-07] MEDS: NIFEdipine E.R 60 MG TABLET PO SCH ×2 (09:10→22:31)
[2023-06-07] MEDS: ENALAPRIL MALEATE 5 MG TABLET PO SCH ×2 (09:10→23:41)
[2023-06-07] MEDS: PANTOPRAZOLE 40 MG TABLET PO SCH (09:10)
[2023-06-07] MEDS: BUDESONIDE/FORMETEROL FUMARATE 160/4.5 mcg INHALER IH SCH ×2 (09:11→22:31)
[2023-06-07] MEDS: COLLAGENASE CLOSTRIDIUM HIST. 30 GRAMS TUBE TP SCH (09:11)
[2023-06-07] MEDS ORDERED: BISACODYL 5 MG TABLET.DR (FP) PO ONE ×2 (15:30→16:00)
[2023-06-07] MEDS ORDERED: PEG 3350/NA SULF BICARB CL/KCL 4000 ML SOLN.RECON PO ONE (17:00)
[2023-06-07] MEDS: ATORVASTATIN CA 40 MG TABLET (FP) PO SCH (22:30)
[2023-06-08] MEDS: hydrALAZINE HCL 25 MG TABLET (FP) PO SCH ×3 (05:21→21:06)
[2023-06-08] MEDS: INSULIN ASPART SLIDING SCALE (NOVOLOG) 1 VIAL SQ SCH ×4 (06:09→21:05)
[2023-06-08] MEDS ORDERED: INSULIN ASPART SLIDING SCALE (NOVOLOG) 1 VIAL SQ ONE (08:13)
[2023-06-08] MEDS: SEVELAMER CARBONATE 800 MG TAB (FP) PO SCH ×3 (08:47→18:06)
[2023-06-08] MEDS ORDERED: KETAMINE HCL 200 MG/20 ML VIAL ONE (08:58)
[2023-06-08] MEDS ORDERED: ALBUTEROL SO4 HFA INHALER IH ONE (09:13)
[2023-06-08 10:04] LABS: HEMATOCRIT 24.9 % (35.4-49); HEMOGLOBIN 8.5 GM/dL (11.7-16.9); LYMPH % 10.2 % (8-40); MCH 29.6 pg (25.7-33.7); MCHC 34.2 g/dl (32.0-35.9); MEAN CELL VOLUME 86.7 fl (80-96); MEAN PLT VOLUME 7.9 fl (7.5-11.1); MONO % 5.8 % (3.8-10.2); PLATELET COUNT 267 10^3/uL (134-434); RBC 2.87 M/mm3 (4.00-5.60); RDW 15.9 % (11.9-15.9); WHITE BLOOD COUNT 11.1 K/mm3 (4.0-10.0)
[2023-06-08 10:09] LABS: INR 1.2 (0.83-1.09); PROTHROMBIN TIME (PATIENT) 13.9 SEC (9.7-13.0)
[2023-06-08 10:26] LABS: CHLORIDE 95 mmol/L (98-107); POTASSIUM 4.2 mmol/L (3.5-5.1); SODIUM 131 mmol/L (136-145)
[2023-06-08 10:41] LABS: ALBUMIN 2.3 g/dl (3.4-5.0); ANION GAP 11 mmol/L (4-13); CALCIUM 7.6 mg/dL (8.5-10.1); CO2 25 mmol/L (21-32); GLUCOSE,RANDOM 75 mg/dL (74-106)
[2023-06-08 10:44] LABS: SGOT/AST 22 U/L (15-37); SGPT/ALT 9 U/L (13-61)
[2023-06-08 10:46] LABS: BILIRUBIN,TOTAL 0.3 mg/dL (0.2-1); TOT PROT 6.8 g/dl (6.4-8.2)
[2023-06-08 10:47] LABS: ALK PHOS 106 U/L (45-117)
[2023-06-08] MEDS: CEFAZOLIN 1 GM in DEXTROSE 5%-WATER - 50 ML IVPB SCH (11:30)
[2023-06-08] MEDS: BUDESONIDE/FORMETEROL FUMARATE 160/4.5 mcg INHALER IH SCH ×2 (11:32→21:07)
[2023-06-08] MEDS: PANTOPRAZOLE 40 MG TABLET PO SCH (11:33)
[2023-06-08] MEDS: NIFEdipine E.R 60 MG TABLET PO SCH ×2 (11:33→21:06)
[2023-06-08] MEDS: ASPIRIN 81 MG CHEWABLE TABLETS PO SCH (11:33)
[2023-06-08] MEDS: ENALAPRIL MALEATE 5 MG TABLET PO SCH ×2 (11:36→21:06)
[2023-06-08 11:45] LABS: CREATININE 8.3 mg/dL (0.55-1.3)
[2023-06-08] MEDS ORDERED: SODIUM CHLORIDE 250 ML IV PRN (12:00)
[2023-06-08] MEDS ORDERED: EPOETIN ALFA-EPBX 10,000 UNIT/ML VIAL SQ ONE (13:00)
[2023-06-08 14:23] VITALS: RESP 18
[2023-06-08] MEDS: COLLAGENASE CLOSTRIDIUM HIST. 30 GRAMS TUBE TP SCH (21:06)
[2023-06-08] MEDS: ATORVASTATIN CA 40 MG TABLET (FP) PO SCH (21:06)
[2023-06-09] MEDS: hydrALAZINE HCL 25 MG TABLET (FP) PO SCH ×3 (05:53→22:02)
[2023-06-09] MEDS: INSULIN ASPART SLIDING SCALE (NOVOLOG) 1 VIAL SQ SCH ×4 (06:06→22:07)
[2023-06-09] MEDS: SEVELAMER CARBONATE 800 MG TAB (FP) PO SCH ×3 (08:48→17:36)
[2023-06-09] MEDS: ENALAPRIL MALEATE 5 MG TABLET PO SCH ×2 (09:54→22:39)
[2023-06-09] MEDS: PANTOPRAZOLE 40 MG TABLET PO SCH (09:54)
[2023-06-09] MEDS: ASPIRIN 81 MG CHEWABLE TABLETS PO SCH (09:54)
[2023-06-09] MEDS: NIFEdipine E.R 60 MG TABLET PO SCH ×2 (09:54→22:02)
[2023-06-09] MEDS: CEFAZOLIN 1 GM in DEXTROSE 5%-WATER - 50 ML IVPB SCH (09:55)
[2023-06-09] MEDS: BUDESONIDE/FORMETEROL FUMARATE 160/4.5 mcg INHALER IH SCH ×2 (09:56→22:04)
[2023-06-09] MEDS: COLLAGENASE CLOSTRIDIUM HIST. 30 GRAMS TUBE TP SCH (09:56)
[2023-06-09 11:35] LABS: HEMATOCRIT 25.6 % (35.4-49); HEMOGLOBIN 8.5 GM/dL (11.7-16.9); MCH 29.2 pg (25.7-33.7); MCHC 33.1 g/dl (32.0-35.9); MEAN PLT VOLUME 8.3 fl (7.5-11.1); PLATELET COUNT 226 10^3/uL (134-434); RBC 2.91 M/mm3 (4.00-5.60); RDW 15.9 % (11.9-15.9); WHITE BLOOD COUNT 9.5 K/mm3 (4.0-10.0)
[2023-06-09 11:43] LABS: POTASSIUM 3.7 mmol/L (3.5-5.1)
[2023-06-09 11:46] LABS: CALCIUM 7.4 mg/dL (8.5-10.1)
[2023-06-09 11:47] LABS: ALBUMIN 2.6 g/dl (3.4-5.0); BLOOD UREA NITROGEN 35.9 mg/dL (7-18); MAGNESIUM 1.7 mg/dL (1.8-2.4)
[2023-06-09 11:50] LABS: CREATININE 6.2 mg/dL (0.55-1.3); PHOSPHOROUS 2.2 mg/dL (2.5-4.9)
[2023-06-09 11:51] LABS: BILIRUBIN,TOTAL 0.4 mg/dL (0.2-1); TOT PROT 7.3 g/dl (6.4-8.2)
[2023-06-09] MEDS ORDERED: MAGNESIUM SULFATE IN WATER 2 GM/50 ML IVPB IVPB ONE (15:14)
[2023-06-09] MEDS: ATORVASTATIN CA 40 MG TABLET (FP) PO SCH (22:02)
[2023-06-10] MEDS: hydrALAZINE HCL 25 MG TABLET (FP) PO SCH ×2 (06:21→16:10)
[2023-06-10] MEDS: INSULIN ASPART SLIDING SCALE (NOVOLOG) 1 VIAL SQ SCH ×3 (06:21→16:21)
[2023-06-10] MEDS ORDERED: SODIUM CHLORIDE 250 ML IV PRN (10:00)
[2023-06-10] MEDS ORDERED: EPOETIN ALFA-EPBX 10,000 UNIT/ML VIAL SQ ONE (11:00)
[2023-06-10] MEDS: SEVELAMER CARBONATE 800 MG TAB (FP) PO SCH ×3 (12:27→16:59)
[2023-06-10] MEDS: PANTOPRAZOLE 40 MG TABLET PO SCH (13:19)
[2023-06-10] MEDS: NIFEdipine E.R 60 MG TABLET PO SCH (13:19)
[2023-06-10] MEDS: BUDESONIDE/FORMETEROL FUMARATE 160/4.5 mcg INHALER IH SCH (13:20)
[2023-06-10] MEDS: ASPIRIN 81 MG CHEWABLE TABLETS PO SCH (13:20)
[2023-06-10] MEDS: ENALAPRIL MALEATE 5 MG TABLET PO SCH (13:20)
[2023-06-10] MEDS: CEFAZOLIN 1 GM in DEXTROSE 5%-WATER - 50 ML IVPB SCH (13:21)
[2023-06-10] MEDS: COLLAGENASE CLOSTRIDIUM HIST. 30 GRAMS TUBE TP SCH (13:21)
[2023-06-10 14:38] VITALS: BP 166/80; PULSE 103; TEMP 99
== END 2023-06-10 18:10 | disposition home or self-care (01) | DRG 853 ==
LOC: JER 10:01 → JERBED 14:25 → J4W 05-21 18:14 → J5S 05-25 21:05 → J7W 06-09 16:32
PROVIDERS: ADMIT Internal Medicine
PROC: 0HBMXZZ Excision of Right Foot Skin, External Approach (ICD-10-PCS; 2023-05-24)
PROC: 0HDRXZZ Extraction of Toe Nail, External Approach (ICD-10-PCS; 2023-05-24)
PROC: 0Y963ZX Drainage of Left Inguinal Region, Percutaneous Approach, Diagnostic (ICD-10-PCS; principal; 2023-05-27)
PROC: 0J2SXYZ Change Other Device in Head and Neck Subcutaneous Tissue and Fascia, External Approach (ICD-10-PCS; 2023-05-28)
PROC: 30233N1 Transfusion of Nonautologous Red Blood Cells into Peripheral Vein, Percutaneous Approach (ICD-10-PCS; 2023-06-01)
PROC: 0DBH8ZX Excision of Cecum, Via Natural or Artificial Opening Endoscopic, Diagnostic (ICD-10-PCS; 2023-06-08)
PROC: 0DB98ZX Excision of Duodenum, Via Natural or Artificial Opening Endoscopic, Diagnostic (ICD-10-PCS; 2023-06-08)
PROC: 0W3P8ZZ Control Bleeding in Gastrointestinal Tract, Via Natural or Artificial Opening Endoscopic (ICD-10-PCS; 2023-06-08)
PROC: 5A1D70Z Performance of Urinary Filtration, Intermittent, Less than 6 Hours Per Day (ICD-10-PCS; 2023-06-10)
DX: A41.9 Sepsis, unspecified organism (principal); N18.6 End stage renal disease; I12.0 Hypertensive chronic kidney disease with stage 5 chronic kidney disease or end stage renal disease; L02.611 Cutaneous abscess of right foot; E87.1 Hypo-osmolality and hyponatremia; Q43.8 Other specified congenital malformations of intestine; T82.898A Other specified complication of vascular prosthetic devices, implants and grafts, initial encounter; I95.9 Hypotension, unspecified; E11.621 Type 2 diabetes mellitus with foot ulcer; D63.1 Anemia in chronic kidney disease; R00.0 Tachycardia, unspecified; L97.519 Non-pressure chronic ulcer of other part of right foot with unspecified severity; E11.22 Type 2 diabetes mellitus with diabetic chronic kidney disease; T45.515A Adverse effect of anticoagulants, initial encounter; D64.9 Anemia, unspecified; X58.XXXA Exposure to other specified factors, initial encounter; Y93.9 Activity, unspecified; Y92.9 Unspecified place or not applicable; K64.8 Other hemorrhoids; K44.9 Diaphragmatic hernia without obstruction or gangrene; D12.0 Benign neoplasm of cecum; Y83.9 Surgical procedure, unspecified as the cause of abnormal reaction of the patient, or of later complication, without mention of misadventure at the time of the procedure; Z99.2 Dependence on renal dialysis
CPT/HCPCS: 0241U-QW; 36415; 36430; 71045-TC-FY; 71250-TC; 73630-TC-RT-FY; 73718-TC-RT; 74176-TC; 76000-TC-FY; 76942-TC; 80048; 80053; 80061; 82272; 82728; 82962; 83021; 83540; 83550; 83605; 83735; 84100; 84155; 84165; 84443; 84466; 84484; 85025; 85027; 85610; 85660; 85730; 86140; 86704; 86705; 86803; 86850; 86900; 86901; 86922; 87040; 87070; 87186; 87205; 87340; 87517; 88304-TC; 88305-TC; 93005; 93010; 93308; 93926-TC; 94010; 94760; 97116-GP; 99285-25; C1750; J1644; J2997; P9038; P9058; Q5106

== ENCOUNTER 2024-01-22 11:08 | Observation (INO) | payer OTHER ==
[2024-01-22 11:54] VITALS: BMI 26.4
[2024-01-22 13:01] LABS: BASO % 1.3 % (0-2.0); EOS % 4.5 % (0-4.5); HEMOGLOBIN 7.8 GM/dL (11.7-16.9); LYMPH % 9.5 % (8-40); MCH 29.8 pg (25.7-33.7); MCHC 32.3 g/dl (32.0-35.9); MEAN PLT VOLUME 8.3 fl (7.5-11.1); MONO % 8.5 % (3.8-10.2); NEUT % 76.2 % (42.8-82.8); PLATELET COUNT 124 10^3/uL (134-434); RBC 2.61 M/mm3 (4.00-5.60); RDW 17.7 % (11.9-15.9); WHITE BLOOD COUNT 6.8 K/mm3 (4.0-10.0)
[2024-01-22 13:07] LABS: INR 1.16 (0.83-1.09); PROTHROMBIN TIME (PATIENT) 13.1 SEC (9.7-13.0)
[2024-01-22 13:19] LABS: CHLORIDE 98 mmol/L (98-107); POTASSIUM 4.7 mmol/L (3.5-5.1); SODIUM 133 mmol/L (136-145)
[2024-01-22 13:22] LABS: CALCIUM 8.9 mg/dL (8.5-10.1)
[2024-01-22 13:23] LABS: ALBUMIN 2.9 g/dl (3.4-5.0); ANION GAP 10 mmol/L (4-13); BLOOD UREA NITROGEN 41.2 mg/dL (7-18); CO2 25 mmol/L (21-32); GLUCOSE,RANDOM 70 mg/dL (74-106)
[2024-01-22 13:26] LABS: PHOSPHOROUS 2.3 mg/dL (2.5-4.9); SGOT/AST 26 U/L (15-37)
[2024-01-22 13:27] LABS: BILIRUBIN,TOTAL 0.8 mg/dL (0.2-1); TOT PROT 7.9 g/dl (6.4-8.2)
[2024-01-22 13:28] LABS: CREATININE 7.7 mg/dL (0.55-1.3)
[2024-01-22 13:29] LABS: ALK PHOS 123 U/L (45-117)
[2024-01-22 13:39] LABS: SGPT/ALT 16 U/L (13-61)
[2024-01-22] MEDS ORDERED: LIDOCAINE 2.5%/PRILOCAINE 2.5% (5 Gram/TUBE) TP ONE (15:02)
[2024-01-22] MEDS: LIDOCAINE 2.5%/PRILOCAINE 2.5% 30 GRAM TUBE TP ONE (15:15)
[2024-01-22] MEDS ORDERED: SODIUM CHLORIDE 250 ML IV PRN (16:40)
[2024-01-22] MEDS ORDERED: ALBUTEROL SO4 HFA INHALER IH PRN (17:29)
[2024-01-22] MEDS: EPOETIN ALFA-EPBX 20,000 UNIT/ML VIAL IVPUSH ONE (18:20)
[2024-01-22] MEDS: ATORVASTATIN CA 40 MG TABLET (FP) PO SCH (21:30)
[2024-01-22] MEDS: hydrALAZINE HCL 25 MG TABLET (FP) PO SCH (21:31)
[2024-01-22] MEDS: NIFEdipine E.R 60 MG TABLET PO SCH (21:31)
[2024-01-22] MEDS: INSULIN ASPART SLIDING SCALE (NOVOLOG) 1 VIAL SQ SCH (21:31)
[2024-01-22] MEDS: APIXABAN 5 MG TABLET PO SCH (21:31)
[2024-01-22] MEDS: ENALAPRIL MALEATE 5 MG TABLET PO SCH (21:50)
[2024-01-23] MEDS: SEVELAMER CARBONATE 800 MG TAB (FP) PO SCH (08:36)
[2024-01-23 09:31] LABS: POTASSIUM 3.6 mmol/L (3.5-5.1)
[2024-01-23] MEDS: PANTOPRAZOLE 40 MG TABLET PO SCH (09:36)
[2024-01-23 09:38] LABS: CALCIUM 8.5 mg/dL (8.5-10.1)
[2024-01-23 09:39] LABS: ALBUMIN 2.9 g/dl (3.4-5.0); BLOOD UREA NITROGEN 22.1 mg/dL (7-18); MAGNESIUM 1.7 mg/dL (1.8-2.4)
[2024-01-23 09:40] LABS: HEMATOCRIT 25.8 % (35.4-49); HEMOGLOBIN 8.3 GM/dL (11.7-16.9); MCH 29.7 pg (25.7-33.7); MCHC 32.2 g/dl (32.0-35.9); MEAN CELL VOLUME 92.1 fl (80-96); MEAN PLT VOLUME 8.2 fl (7.5-11.1); PLATELET COUNT 135 10^3/uL (134-434); RDW 18.6 % (11.9-15.9)
[2024-01-23 09:42] LABS: CREATININE 5.4 mg/dL (0.55-1.3); PHOSPHOROUS 1.9 mg/dL (2.5-4.9)
[2024-01-23 09:44] LABS: BILIRUBIN,TOTAL 0.9 mg/dL (0.2-1); TOT PROT 7.7 g/dl (6.4-8.2)
[2024-01-23] MEDS ORDERED: COLLAGENASE CLOSTRIDIUM HIST. 30 GRAMS TUBE TP SCH (10:00)
[2024-01-23] MEDS: BUDESONIDE/FORMETEROL FUMARATE 160/4.5 mcg INHALER IH SCH (12:38)
[2024-01-24 10:00] LABS: POTASSIUM 3.5 mmol/L (3.5-5.1)
[2024-01-24 10:02] LABS: CALCIUM 8.4 mg/dL (8.5-10.1)
[2024-01-24 10:03] LABS: ALBUMIN 2.8 g/dl (3.4-5.0); BLOOD UREA NITROGEN 32.2 mg/dL (7-18)
[2024-01-24 10:06] LABS: BASO % 1.1 % (0-2.0); CREATININE 7.2 mg/dL (0.55-1.3); EOS % 5.7 % (0-4.5); HEMATOCRIT 25.3 % (35.4-49); HEMOGLOBIN 8.2 GM/dL (11.7-16.9); LYMPH % 11.1 % (8-40); MCH 29.9 pg (25.7-33.7); MCHC 32.5 g/dl (32.0-35.9); MEAN PLT VOLUME 8.4 fl (7.5-11.1); MONO % 9.4 % (3.8-10.2); NEUT % 72.7 % (42.8-82.8); PLATELET COUNT 144 10^3/uL (134-434); RBC 2.75 M/mm3 (4.00-5.60); RDW 17.6 % (11.9-15.9); WHITE BLOOD COUNT 6.9 K/mm3 (4.0-10.0)
[2024-01-24 10:07] LABS: BILIRUBIN,TOTAL 0.7 mg/dL (0.2-1)
[2024-01-24 10:08] LABS: TOT PROT 7.4 g/dl (6.4-8.2)
[2024-01-25] MEDS ORDERED: SODIUM CHLORIDE 250 ML IV PRN (10:19)
[2024-01-25 10:23] LABS: BASO % 0.8 % (0-2.0); EOS % 5.1 % (0-4.5); HEMATOCRIT 24.3 % (35.4-49); HEMOGLOBIN 8.1 GM/dL (11.7-16.9); MCH 30.5 pg (25.7-33.7); MCHC 33.1 g/dl (32.0-35.9); MONO % 8.6 % (3.8-10.2); NEUT % 73.5 % (42.8-82.8); PLATELET COUNT 148 10^3/uL (134-434); RBC 2.64 M/mm3 (4.00-5.60); RDW 17.6 % (11.9-15.9); WHITE BLOOD COUNT 7.2 K/mm3 (4.0-10.0)
[2024-01-25] MEDS ORDERED: EPOETIN ALFA-EPBX 20,000 UNIT/ML VIAL SQ ONE (11:00)
[2024-01-25 11:11] LABS: CHLORIDE 96 mmol/L (98-107); POTASSIUM 4.1 mmol/L (3.5-5.1); SODIUM 135 mmol/L (136-145)
[2024-01-25 11:20] LABS: ALBUMIN 2.9 g/dl (3.4-5.0); ANION GAP 12 mmol/L (4-13); CALCIUM 8.6 mg/dL (8.5-10.1); CO2 27 mmol/L (21-32)
[2024-01-25 11:21] LABS: BLOOD UREA NITROGEN 42.3 mg/dL (7-18); GLUCOSE,RANDOM 103 mg/dL (74-106); MAGNESIUM 1.8 mg/dL (1.8-2.4)
[2024-01-25 11:24] LABS: PHOSPHOROUS 2.2 mg/dL (2.5-4.9); SGOT/AST 18 U/L (15-37); SGPT/ALT 12 U/L (13-61)
[2024-01-25 11:25] LABS: BILIRUBIN,TOTAL 0.9 mg/dL (0.2-1); TOT PROT 7.6 g/dl (6.4-8.2)
[2024-01-25 11:26] LABS: ALK PHOS 112 U/L (45-117); CREATININE 8.8 mg/dL (0.55-1.3)
[2024-01-26] MEDS ORDERED: LIDOCAINE 2.5%/PRILOCAINE 2.5% 30 GRAM TUBE TP SCH (12:30)
[2024-01-26] MEDS: EPOETIN ALFA-EPBX 20,000 UNIT/ML VIAL IVPUSH ONE (14:12)
[2024-01-26] MEDS: hydrALAZINE HCL 25 MG TABLET (FP) PO SCH (21:21)
[2024-01-27 08:23] LABS: POTASSIUM 4.3 mmol/L (3.5-5.1)
[2024-01-27 08:27] LABS: CALCIUM 8.6 mg/dL (8.5-10.1)
[2024-01-27 08:28] LABS: ALBUMIN 2.9 g/dl (3.4-5.0); BLOOD UREA NITROGEN 31.8 mg/dL (7-18); MAGNESIUM 1.8 mg/dL (1.8-2.4)
[2024-01-27 08:29] VITALS: TEMP 98.6
[2024-01-27 08:31] LABS: CREATININE 6.9 mg/dL (0.55-1.3); PHOSPHOROUS 2.1 mg/dL (2.5-4.9)
[2024-01-27 08:33] LABS: BILIRUBIN,TOTAL 0.6 mg/dL (0.2-1); TOT PROT 7.5 g/dl (6.4-8.2)
[2024-01-27 15:33] VITALS: BP 120/64; PULSE 90; RESP 19
== END 2024-01-27 20:56 | disposition other institution (70) ==
LOC: JER 11:08 → JERBED 15:42 → J5S 20:16 → J6W 01-27 11:21
PROVIDERS: ADMIT Internal Medicine; ATTEND Internal Medicine
PROC: 3E033GC Introduction of Other Therapeutic Substance into Peripheral Vein, Percutaneous Approach (ICD-10-PCS; principal; 2024-01-22)
DX: E11.22 Type 2 diabetes mellitus with diabetic chronic kidney disease (principal); I12.0 Hypertensive chronic kidney disease with stage 5 chronic kidney disease or end stage renal disease; N18.6 End stage renal disease; Z99.2 Dependence on renal dialysis; Z91.158 Patient's noncompliance with renal dialysis for other reason; J45.909 Unspecified asthma, uncomplicated; G47.30 Sleep apnea, unspecified; S91.301A Unspecified open wound, right foot, initial encounter; X58.XXXA Exposure to other specified factors, initial encounter; Y93.9 Activity, unspecified; Z86.711 Personal history of pulmonary embolism; Z79.01 Long term (current) use of anticoagulants; Z91.013 Allergy to seafood
CPT/HCPCS: 36415; 71045-TC-FY; 73060-TC-LT-FY; 73070-TC-LT-FY; 73090-TC-LT-FY; 80053; 82962; 83735; 84100; 85025; 85027; 85610; 86704; 86803; 86850; 86900; 86901; 87340; 87517; 93005; 93010; 93931; 93971; 93990-TC; 96374; 96376; 97116-GP; 97161-GP; 99285-25; G0378